=== PATIENT | male | born 1985 | race African-American/Black ===

== ENCOUNTER 2016-06-02 13:39 | Emergency (ER) | payer OTHER ==
[~2016-06-02] VITALS: Ht 170.2 cm; Wt 118.8 kg
[~2016-06-02 13:39] MED LIST: ALBUTEROL SULF8.5 GM INH; AZITHROMYCIN250 MG ORAL; CIPRO500 MG PO; CIPROFLOXACIN500 M2 ORAL; CLARITIN-D 241 EACH PO; FLUTICASONE PRO16 G1 NASAL; FUROSEMIDE20 M1 ORAL; GENTAMICIN SUL3.5 GM OP; HYDROCHLOROTHIA25 MG ORAL; IMODIUM2 MG ORAL; LISINOPRIL20 MG ORAL; METFORMIN HCL500 M1 ORAL; METRONIDAZOLE500 MG ORAL; NKM; NORMODYNE200 MG ORAL; NORVASC10 MG ORAL; ONDANSETRON ODT4 MG ORAL; RANITIDINE HCL150 MG ORAL; TENORMIN25 MG ORAL; ZOFRAN4 M1 ORAL
[2016-06-02] MEDS ORDERED: Lidocaine 1% MPF 10mg/ml 5ml INJ ONE (14:15)
[2016-06-02 14:42] VITALS: BP 186/104
[2016-06-02] MEDS ORDERED: BACTRIM DS TAB1 EAC1 ORAL (14:42)
[2016-06-02] MEDS ORDERED: CEPHALEXIN500 MG ORAL (14:42)
[2016-06-02] MEDS ORDERED: IBUPROFEN600 MG ORAL (14:42)
[2016-06-02] MEDS ORDERED: Bacitracin Oint UD TOPIC ONE (14:45)
[2016-06-02 14:55] VITALS: BP 186/104
--- NOTE | 2016-06-02 22:21 | Emergency Room Report ---
History of Present Illness General Chief Complaint: Skin Rash/Abscess Source: Patient Present Illness HPI The pt is a 31 yo M presenting for a possible abscess of the L groin. The pt first noticed pain and a mass two days prior which has been worsening. The pt also has noticed discharge described as yellow this morning from the mass. Pain is described as a 10/10 dull ache and does not radiate from the area. Pain is worse with touch. The pt denies any past injuries to this areas and is unsure of why this may have started. The pt denies any other symptoms including N, V, F , chills, numbness/tingling, dysuria, hematuria, penile DC, abd pain Allergies: Coded Allergies: No Known Allergies (Verified , 08/04/09) Patient History Past Medical History: see triage record Pertinent Family History: none Reviewed Nursing Documentation: PMH: Agreed, PSxH: Agreed Nursing Documentation-PMH Past Medical History: No History, Except For Hx Cardiac Problems: Yes Hx Hypertension: Yes Hx Pacemaker: No Hx Asthma: No Hx COPD: No Hx Diabetes: Yes Hx Cancer: No Hx Gastrointestinal Problems: No Hx Dialysis: No Hx Neurological Problems: Yes Hx Cerebrovascular Accident: No Hx Seizures: No Review of Systems All Other Systems: negative except mentioned in HPI Physical Exam Vital Signs Date Time Temp Pulse Resp B/P Pulse Ox O2 Delivery O2 Flow Rate FiO2 06/02/16 13:51 98.4 92 16 186/104 99 Sp02 EP Interpretation: reviewed, normal General Appearance: no apparent distress, alert, GCS 15, non-toxic Head: normocephalic, atraumatic Eyes: bilateral eye PERRL, bilateral eye normal inspection Gastrointestinal: normal bowel sounds, non tender, soft, non-distended, no guarding, no rebound Rectal: deferred Genitourinary: normal inspection, no CVA tenderness, penis normal, scrotum normal Musculoskeletal: back normal, gait/station normal, normal range of motion, non- tender Neurologic: alert, oriented x3, responsive, motor strength/tone normal, sensory intact, speech normal Psychiatric: judgement/insight normal, memory normal, mood/affect normal, no suicidal/homicidal ideation Skin: normal turgor, other - There is a 3cm fluctuant tender mass of the L inguinal region with a central opening and some discharge. Lymphatic: no adenopathy Procedures Incision and Drainage Incision and Drainage : Consent: Verbal Site: L inguinal region Blade Size: 11 I & D Procedure: betadine prep, sterile drapes applied, sterile dressing applied Wound Location: lower extremity Wound's Depth, Shape: superficial Wound Length (cm): 3 Wound Explored: contaminated Irrigated w/ Saline (ccs): 100 Anesthesia: 1% Lidocaine Volume Anesthetic (ccs): 3 Splint Applied?: No Sling Applied?: No Patient Tolerated: Well Complications: None Medical Decision Making PA Attestation Dr. Bose is my supervising physician. Patient management was discussed with my supervising physician Diagnostic Impression: Primary Impression: Abscess ER Course The pt is a 31 yo M presenting for a possible abscess of the L groin. Differential diagnoses considered but not limited to: abscess, cellulitis, insect bite PE: afebrile. NAD Abd is soft and non tender. No CVA tenderness Penis and scrotum appears normal. No DC. Non tender. No erythema/edema There is a 3cm fluctuant tender mass of the L inguinal region with a central opening and some discharge. Betadine prep was used to clean the skin and surrounding area. One percent lidocaine without epinephrine was used to anesthetize the are of planned incision. A #11 blade was used to make an incision in the central area of fluctuance approximately 1/3 the size of the diameter of the abcess. Once the incision was made, purulent material was expressed with blood. Blunt dissection was then used to release loculations and expressed more purulent material. Once only blood appeared to be expressed from the incision, normal saline was used to irrigate the inside of the abscess. The wound was then cleaned and sterile dressing with bacitracin applied. The pt is DC'ed home with a prescription for keflex and bactrim. ER precautions given. Last Vital Signs Date Time Temp Pulse Resp B/P Pulse Ox O2 Delivery O2 Flow Rate FiO2 06/02/16 14:55 98.4 16 186/104 99 06/02/16 13:51 92 Status: improved Disposition: HOME, SELF-CARE Condition: Improved Scripts Trimethoprim/Sulfamethoxazole 160/800* (BACTRIM DS TABLET*) 1 Each Tablet 1 TAB ORAL TWICE A DAY, #14 TAB Prov: TERZIANBILL P.A. 06/02/16 Cephalexin* (KEFLEX*) 500 Mg Capsule 500 MG ORAL EVERY 12 HOURS, #14 CAP 0 Refills Prov: BILL LIM 06/02/16 Ibuprofen* (MOTRIN*) 600 Mg Tablet 600 MG ORAL Q8H Y for For Pain, #30 TAB 0 Refills Prov: BILL LIM 06/02/16 Referrals: NON PHYSICIAN (PCP) Patient Instructions: Abscess Additional Instructions: I discussed my findings with the patient. All questions and concerns have been answered. Treatment and medication compliance have been addressed. I advised the patient that they need to follow up with PMD in 3-5 days. Return to ED if symptoms worsen, new symptoms arise, or if needed for any reason. Patient verbalized understanding of discharge instructions. BILL LIM Jun 02, 2016 22:21
== END 2016-06-02 14:58 | disposition home or self-care (01) ==
LOC: EMR 14:15
DX: L02.214 Cutaneous abscess of groin (principal); I10 Essential (primary) hypertension; E11.9 Type 2 diabetes mellitus without complications
CPT/HCPCS: 10060

== ENCOUNTER 2016-07-16 23:12 | Emergency (ER) | payer OTHER ==
[~2016-07-16] VITALS: Ht 170.2 cm; Wt 117.9 kg
[~2016-07-16 23:12] MED LIST changes: +BACTRIM DS TAB1 EAC1 ORAL; +CEPHALEXIN500 MG ORAL; +IBUPROFEN600 MG ORAL
--- NOTE | 2016-07-16 23:45 | Emergency Room Report ---
History of Present Illness General Chief Complaint: Sore Throat Source: Patient Present Illness HPI Patient presents with sore throat. 3 days worsening. Pain with swallowing = burning. No cough. Able to eat. Pain is 9/10. Motrin taken. No NVD. NO rashes. Has not been taking his blood pressure medicine. No chest pain, FRANCO, change in urine. 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 Nursing Documentation: PMH: Agreed, PSxH: Agreed Nursing Documentation-PMH Past Medical History: No History, Except For Hx Cardiac Problems: Yes Hx Hypertension: Yes Hx Pacemaker: No Hx Asthma: No Hx COPD: No Hx Diabetes: Yes - Type 2 Hx Cancer: No Hx Gastrointestinal Problems: No Hx Dialysis: No Hx Neurological Problems: Yes Hx Cerebrovascular Accident: No Hx Seizures: No Review of Systems All Other Systems: negative except mentioned in HPI Physical Exam Vital Signs Date Time Temp Pulse Resp B/P Pulse Ox O2 Delivery O2 Flow Rate FiO2 07/16/16 23:22 98.4 89 17 100 Room Air Sp02 EP Interpretation: reviewed, normal General Appearance: well appearing, no apparent distress Head: normocephalic, atraumatic Eyes: bilateral eye PERRL, bilateral eye normal inspection ENT: hearing grossly normal, normal voice, pharyngeal erythema, tonsillar exudate Neck: full range of motion, supple Respiratory: no respiratory distress, speaking full sentences Gastrointestinal: non tender, overweight Musculoskeletal: no calf tenderness Neurologic: alert, normal gait, grossly normal Psychiatric: mood/affect normal Skin: no rash Medical Decision Making Diagnostic Impression: Primary Impression: Exudative pharyngitis Additional Impression: HTN (hypertension) Qualified Codes: I10 - Essential (primary) hypertension ER Course Patient with exudative pharyngitis. Treated with decadron and antibiotics. Not toxic. 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 Also found with HTN. Given meds and told to resume taking them. Patient stable for outpatient observation and treatment. Last Vital Signs Date Time Temp Pulse Resp B/P Pulse Ox O2 Delivery O2 Flow Rate FiO2 07/17/16 00:50 98.4 101 17 200/110 100 Room Air Patient left before another determination could be taken. Status: improved Disposition: HOME, SELF-CARE Condition: Stable Scripts Tramadol Hcl* (ULTRAM*) 50 Mg Tablet 50 MG ORAL Q6H Y for For Pain, #10 TAB 0 Refills Prov: Kamran Bose M.D. 07/16/16 Amoxicillin* (AMOXIL*) 500 Mg Capsule 500 MG ORAL THREE TIMES A DAY, #21 CAP Prov: Kamran Bose M.D. 07/16/16 Kamran Bose M.D. Jul 16, 2016 23:45
[2016-07-16] MEDS ORDERED: TRAMADOL HCL50 MG ORAL (23:48)
[2016-07-16] MEDS ORDERED: AMOXICILLIN500 MG ORAL (23:48)
[2016-07-16 23:50] VITALS: BP 200/110
[2016-07-17] MEDS ORDERED: Atenolol 25mg tab ORAL ONE
[2016-07-17] MEDS ORDERED: Labetalol 200mg tab ORAL STA (00:06)
[2016-07-17] MEDS ORDERED: Lisinopril 10mg tab ORAL ONE (00:15)
[2016-07-17 00:50] VITALS: BP 200/110
== END 2016-07-17 00:50 | disposition home or self-care (01) ==
LOC: EMR 23:44
DX: J02.9 Acute pharyngitis, unspecified (principal); I10 Essential (primary) hypertension; E11.9 Type 2 diabetes mellitus without complications; F17.290 Nicotine dependence, other tobacco product, uncomplicated; F12.10 Cannabis abuse, uncomplicated
CPT/HCPCS: 99284; J8540

== ENCOUNTER 2017-01-24 12:12 | Emergency (ER) | payer MEDICAID, OTHER ==
[~2017-01-24] VITALS: Ht 175.3 cm; Wt 113.4 kg
[~2017-01-24 12:12] MED LIST changes: +AMOXICILLIN500 MG ORAL; +TRAMADOL HCL50 MG ORAL
[2017-01-24 12:21] VITALS: BP 176/130
--- NOTE | 2017-01-24 13:47 | Diagnostic Imaging Report ---
Indication: Dizziness Technique: Continuous helical CT scanning of the head was performed without intravenous contrast material. Axial and coronal 5 mm sections were generated. Radiation dose was minimized using automated exposure control Dose: Total Dose Length Product - DLP [address] Dose Index - CTDIvol(s) 70.38 mGy. Comparison: 12/23/2013 Findings: The ventricular system is normal in size and configuration. There is no shift of midline structures. No abnormal extra-axial fluid collections are noted. There is no evidence of intracerebral bleeding. No other abnormal high or low density areas are noted within the brain. Normal hoyt-white differentiation. Visualized orbits and sinuses are unremarkable. Under pneumatized mastoids bilaterally. Intact calvarium. Possible small colloid cyst at the roof of the third ventricle. Findings are unchanged from previous Impression: Essentially normal CT scan of the head without contrast material. Possible small third ventricular roof colloid cyst The CT scanner at [facility] is accredited by the [employer] and the scans are performed using protocols designed to limit radiation exposure to as low as reasonably achievable to attain images of sufficient resolution adequate for diagnostic evaluation.
[2017-01-24 13:48] VITALS: BP 181/119
[2017-01-24 13:50] LABS: BASOPHILS % (AUTO) 1.4 % (0.0-2.0); EOSINOPHILS % (AUTO) 1.3 % (0.0-3.0); LYMPHOCYTES % (AUTO) 25.7 % (20.0-45.0); MEAN CORPUSCULAR HEMOGLOBIN 29.2 PG (27.0-31.0); MEAN CORPUSCULAR HGB CONC 34.5 G/DL (32.0-36.0); MEAN CORPUSCULAR VOLUME 85 FL (80-99); MEAN PLATELET VOLUME 7.9 FL (6.5-10.1); MONOCYTES % (AUTO) 9.3 % (1.0-10.0); NEUTROPHILS % (AUTO) 62.3 % (45.0-75.0); PLATELET COUNT 309 K/UL (150-450); RED BLOOD COUNT 5.47 M/UL (4.70-6.10); RED CELL DISTRIBUTION WIDTH 11.1 % (11.6-14.8); WHITE BLOOD COUNT 5.6 K/UL (4.8-10.8)
--- NOTE | 2017-01-24 13:51 | Diagnostic Imaging Report ---
Indication: Shortness of breath Technique: One view of the chest Comparison: 11/12/2015 Findings: The heart is mildly enlarged. The lungs and pleural spaces are clear. There is no significant change Impression: Cardiomegaly No acute process
--- NOTE | 2017-01-24 13:52 | Emergency Room Report ---
History of Present Illness General Chief Complaint: Eye Problems Source: Patient (RIAJ HENSLEY M.D.) Present Illness HPI 31-year-old male presents ED complaining of blurred vision x2 days. Denies any headache. Denies any nausea or vomiting. In triage blood pressure is high. Patient states has history of hypertension and diabetes but read out of his medication about one week ago. Denies any chest pain or shortness of breath. Denies any drug use. No other aggravating relieving factors. Denies any other associated symptoms (IRAJ HENSLEY M.D.) Allergies: Coded Allergies: No Known Allergies (Verified , 08/04/09) Patient History Past Medical History: none, DM, HTN Past Surgical History: none Pertinent Family History: none Social History: Denies: smoking, alcohol use, drug use Immunizations: UTD Reviewed Nursing Documentation: PMH: Agreed, PSxH: Agreed (IRAJ HENSLEY M.D.) Nursing Documentation-PMH Hx Cardiac Problems: Yes Hx Hypertension: Yes Hx Pacemaker: No Hx Asthma: No Hx COPD: No Hx Diabetes: Yes - Type 2 Hx Cancer: No Hx Gastrointestinal Problems: No Hx Dialysis: No Hx Neurological Problems: Yes Hx Cerebrovascular Accident: No Hx Seizures: No (IRAJ HENSLEY M.D.) Review of Systems All Other Systems: negative except mentioned in HPI (IRAJ HENSLEY M.D.) Physical Exam Vital Signs Date Time Temp Pulse Resp B/P (MAP) Pulse Ox O2 Delivery O2 Flow Rate FiO2 01/24/17 12:21 98.4 89 20 176/130 99 Room Air Sp02 EP Interpretation: reviewed, normal General Appearance: no apparent distress, alert, GCS 15, non-toxic, obese Head: normocephalic, atraumatic Eyes: bilateral eye normal inspection, bilateral eye PERRL, bilateral eye EOMI ENT: hearing grossly normal, normal pharynx, no angioedema, normal voice Neck: full range of motion, supple, no meningismus, supple/symm/no masses Respiratory: chest non-tender, lungs clear, normal breath sounds, speaking full sentences Cardiovascular #1: regular rate, rhythm, no edema Cardiovascular #2: 2+ carotid (R), 2+ carotid (L), 2+ radial (R), 2+ radial (L) , 2+ dorsalis pedis (R), 2+ dorsalis pedis (L) Gastrointestinal: normal bowel sounds, non tender, soft, non-distended, no guarding, no rebound Rectal: deferred Genitourinary: normal inspection, no CVA tenderness Musculoskeletal: back normal, gait/station normal, normal range of motion, non- tender Neurologic: alert, oriented x3, responsive, motor strength/tone normal, sensory intact, speech normal Psychiatric: judgement/insight normal, memory normal, mood/affect normal, no suicidal/homicidal ideation Reflexes: 3+ bicep (R), 3+ bicep (L), 3+ tricep (R), 3+ tricep (L), 3+ knee (R) , 3+ knee (L) Skin: normal color, no rash, warm/dry, well hydrated Lymphatic: no adenopathy (IRAJ HENSLEY M.D.) Medical Decision Making Diagnostic Impression: Primary Impression: Hypertensive emergency Additional Impression: Noncompliance with medication regimen ER Course Received signout 31-year-old male with hypertension Uncontrolled With blurry vision for the last 2 days Patient has got him clonidine 0.1 mg as well as hydralazine 10 mg IV x2, have her blood pressure still not coming down, systolic is 170/110 Patient still symptomatic Patient will be transferred to outside hospital to to insurance purposes He is stable for transfer Spoke with Dr. Escobar who has accepted patient for admission Another 0.2 mg of clonidine will be given Patient is leaving AGAINST MEDICAL ADVICE Patient received antihypertensives, his last blood pressure improved to 170/80 Patient's symptoms are improved He states that he does not want to be transferred or admitted at this time, states that the hospital too far for him to drive later Patient stating that his blood pressure as high as he has run out of meds for a couple states that he is unable to get appointment with his primary care doctor I told him to either call his doctor for refill of medications or he can call back [facility] and I will refill for a few days . Strict return precautions given to patient such as severe or worsening headache, blurry vision, nausea vomiting, chest pain, shortness of breath He verbalized understanding and agrees Patient is clinically sober, is free from from distracting injury, and has intact judgement and capacity to decide to leave against medical advice. I explained to patient the risks of leaving AMA and patient informed that if they leave, they could get worse, ould become become critically ill, possibly become disabled or . Patient verbalized back to me understanding of these risks but still wants to leave. (Guicho Cordova M.D.) EKG Diagnostic Results Rate: normal Rhythm: NSR ST Segments: no acute changes ASA given to the pt in ED: No (IRAJ HENSLEY M.D.) Rhythm Strip Diag. Results EP Interpretation: yes Rhythm: NSR, no PVC's, no ectopy (IRAJ HENSLEY M.D.) Chest X-Ray Diagnostic Results Chest X-Ray Diagnostic Results : Chest X-Ray Ordered: Yes # of Views/Limited/Complete: 1 View Indication: Shortness of Breath EP Interpretation: Yes Interpretation: no consolidation, no effusion, no pneumothorax, other - cardiomegaly Impression: Other - cardiomegaly Electronically Signed by: Electronically signed by Iraj Hensley MD (IRAJ HENSLEY M.D.) CT/MRI/US Diagnostic Results CT/MRI/US Diagnostic Results : Imaging Test Ordered: CT head Impression no acute proces (IRAJ HENSLEY M.D.) Last Vital Signs Date Time Temp Pulse Resp B/P (MAP) Pulse Ox O2 Delivery O2 Flow Rate FiO2 01/24/17 13:48 98.4 81 18 181/119 100 Room Air Status: improved (IRAJ HENSLEY M.D.) Disposition: ADMITTED INPATIENT Condition: Serious Referrals: [facility],REFERRING (PCP) IRAJ HENSLEY M.D. Jan 24, 2017 13:52 Guicho Cordova M.D. Jan 24, 2017 15:03
[2017-01-24 14:14] LABS: ALANINE AMINOTRANSFERASE 44 U/L (12-78); ALBUMIN/GLOBULIN RATIO 1.1 (1.0-2.7); ANION GAP 7 mmol/L (5-15); ASPARTATE AMINO TRANSFERASE 22 U/L (15-37); CALCIUM 9.5 MG/DL (8.5-10.1); CARBON DIOXIDE 30 MMOL/L (21-32); CHLORIDE 101 MMOL/L (98-107); CKMB 4.6 NG/ML (0.0-3.6); CREATININE 1.2 MG/DL (0.55-1.30); GLOMERULAR FILTRATION RATE > 60 mL/min (>60); POTASSIUM 4.1 MMOL/L (3.5-5.1); SODIUM 138 MMOL/L (136-145); TOTAL PROTEIN 7.5 G/DL (6.4-8.2)
[2017-01-24] MEDS ORDERED: cloNIDine 0.2mg Tab ORAL ONE (15:00)
[2017-01-24 15:29] VITALS: BP 176/92
[2017-01-24] MEDS ORDERED: METFORMIN HCL500 M1 ORAL (17:08)
[2017-01-24] MEDS ORDERED: HYDROCHLOROTHIA25 MG ORAL (17:08)
[2017-01-24 17:15] VITALS: BP 173/90
--- NOTE | 2017-01-24 23:00 | Consultation ---
DATE OF CONSULTATION: 01/24/2017 INTERNAL MEDICINE CONSULTATION CONSULTING PHYSICIAN: Wilmer Gandhi M.D. HISTORY OF PRESENT ILLNESS: This is a 31-year-old male who came to the hospital with blurred vision. He denied headaches, nausea, or vomiting. He was noted to be hypertensive. The patient reports being a known hypertensive and diabetic, but states that he is taking his medications. PAST MEDICAL HISTORY: Hypertension and diabetes mellitus. PAST SURGICAL HISTORY: None. SOCIAL HISTORY: No history of alcohol or tobacco usage. REVIEW OF SYSTEMS: The patient denies any headaches, hematemesis, melena, or hematochezia. PHYSICAL EXAMINATION: GENERAL: Reveals a young male. VITAL SIGNS: Blood pressure 170/100, respirations are 18, and heart rate 84. HEENT: Unremarkable. CHEST: Clear. ABDOMEN: Soft. LABORATORY AND DIAGNOSTIC DATA: EKG, normal sinus rhythm. Lab testing, noncontributory. IMPRESSION: Hypertensive urgency. DISCUSSION: The patient is hypertensive. He is noncompliant with medications. At this point, he is stable for transfer to [facility]. I spoke with Dr. Urena. He will admit the patient. Discussed with on-call outsole caser. The patient is stable for transfer. Wilmer Gandhi M.D. DR: KATELYN JOB#: [id number] CC:
--- NOTE | 2017-01-25 16:40 | Cardiology Report ---
APPROVED REPORT EKG Measurement Heart [id number] Normal sinus rhythm Nonspecific T wave abnormality Prolonged QT Abnormal ECG
== END 2017-01-24 17:17 | disposition left against medical advice (07) ==
LOC: EMR 12:34
DX: H53.8 Other visual disturbances (principal); I10 Essential (primary) hypertension; E11.9 Type 2 diabetes mellitus without complications; I16.0 Hypertensive urgency; Z91.14 Patient's other noncompliance with medication regimen; Z86.79 Personal history of other diseases of the circulatory system; Z86.69 Personal history of other diseases of the nervous system and sense organs
CPT/HCPCS: 36415; 70450; 71010; 80053; 82009; 82550; 82553; 82962; 83880; 84484; 85025; 93005; 96361; 96374; 96376; 99284; J0360

== ENCOUNTER 2017-07-14 18:37 | Emergency (ER) | payer MEDICAID ==
[~2017-07-14] VITALS: Ht 177.8 cm; Wt 124.3 kg
[2017-07-14 18:54] VITALS: BP 198/126
[2017-07-14] MEDS ORDERED: METFORMIN HCL500 M1 ORAL (18:55)
[2017-07-14] MEDS ORDERED: LABETALOL HCL200 MG ORAL (18:55)
[2017-07-14] MEDS ORDERED: LISINOPRIL40 MG ORAL (18:55)
--- NOTE | 2017-07-14 19:08 | Emergency Room Report ---
History of Present Illness General Chief Complaint: Laceration Source: Patient Present Illness HPI Patient is a 32-year-old male brought in by self after increased pain to his left thumb. The patient reports having the cut his hand with a knife. The patient is left-hand dominant. Patient denies any pulsatile bleeding. He stated pain was noted to be left-sided. He denies any fever. 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 Allergies: Coded Allergies: No Known Allergies (Verified , 08/04/09) Patient History Past Medical History: see triage record Reviewed Nursing Documentation: PMH: Agreed; PSxH: Agreed Nursing Documentation-PMH Hx Cardiac Problems: Yes Hx Hypertension: Yes Hx Pacemaker: No Hx Asthma: No Hx COPD: No Hx Diabetes: Yes - DM2 Hx Cancer: No Hx Gastrointestinal Problems: No Hx Dialysis: No Hx Neurological Problems: Yes Hx Cerebrovascular Accident: No Hx Seizures: No Review of Systems All Other Systems: negative except mentioned in HPI Physical Exam Vital Signs Date Time Temp Pulse Resp B/P (MAP) Pulse Ox O2 Delivery O2 Flow Rate FiO2 07/14/17 18:40 98.5 101 19 198/126 96 Room Air 98.4 General Appearance: well appearing, no apparent distress, alert, GCS 15 Head: normocephalic, atraumatic ENT: hearing grossly normal, normal voice Neck: full range of motion, supple Respiratory: no respiratory distress, speaking full sentences Cardiovascular #1: normal inspection Gastrointestinal: normal inspection Musculoskeletal: no calf tenderness Neurologic: normal inspection, alert, oriented x3, responsive, normal gait Psychiatric: mood/affect normal Skin: no rash, laceration - 1cm Procedures Laceration/Wound Repair Laceration/Wound Repair : Consent: Verbal Wound Location: upper extremity Wound's Depth, Shape: superficial Wound Length (cm): 1 Wound Explored: clean Wound Debrided: minimal Wound Repaired With: Dermabond Patient Tolerated: Well Complications: None Medical Decision Making Diagnostic Impression: Primary Impression: Finger laceration ER Course Patient presented for laceration. Differential diagnoses included foreign body , nerve injury, arterial injury among others. Patient has a benign exam and does not appear to require any further imaging or laboratory testing at this time. The patient blood pressure was noted to be elevated and improved spontaneously. The patient was advised to follow-up with primary care physician for recheck in the next 2 days. The patient was advised wound care. He was advised not to contact his left thumb. Last Vital Signs Date Time Temp Pulse Resp B/P (MAP) Pulse Ox O2 Delivery O2 Flow Rate FiO2 07/14/17 18:54 98.4 99 19 198/126 96 Room Air 98.4 Status: improved Disposition: HOME, SELF-CARE Condition: Stable Patient Instructions: Tissue Adhesive Wound Care Charles Wilkinson Jul 14, 2017 19:08
[2017-07-14] MEDS ORDERED: Tetanus/Diptheria/Pertussis Vaccine 0.5ml Syr IM ONE (19:15)
[2017-07-14 19:40] VITALS: BP 176/110
[2017-07-14 19:47] VITALS: BP 176/110
== END 2017-07-14 19:46 | disposition home or self-care (01) ==
LOC: EMR 19:15
DX: S61.012A Laceration without foreign body of left thumb without damage to nail, initial encounter (principal); E11.9 Type 2 diabetes mellitus without complications; I10 Essential (primary) hypertension; W26.0XXA Contact with knife, initial encounter; Y93.9 Activity, unspecified; Y92.9 Unspecified place or not applicable; Z23 Encounter for immunization
CPT/HCPCS: 12001; 90471; 90715; 99284; Z7502

== ENCOUNTER 2018-04-08 09:21 | Emergency (ER) | payer MEDICAID ==
[~2018-04-08] VITALS: Ht 170.2 cm; Wt 113.4 kg
[~2018-04-08 09:21] MED LIST changes: +LABETALOL HCL200 MG ORAL; +LISINOPRIL40 MG ORAL
--- NOTE | 2018-04-08 09:34 | NUR ---
ED Nurse Note: Pt came into the ER w/ complaints of n,v,d since yesterdat after eating [employer]. Pt is complaiing of abdominal pain in all quadrants 8/10 non radiating. Hx of DM and HTN. Takes atenelol and hctz for HTN. A + O x4. Ambulatory. As per pt, pt has not taken BP meds today.
[2018-04-08 09:36] VITALS: BP 194/104
[2018-04-08] MEDS ORDERED: Ketorolac 30mg Inj IV ONE (09:45)
[2018-04-08] MEDS ORDERED: Mylanta II UD 30ml ORAL ONE (09:45)
[2018-04-08] MEDS ORDERED: Dicyclomine HCl 10mg/5ml oral soln ORAL ONE (09:45)
[2018-04-08] MEDS ORDERED: Lidocaine 2% Visc 15ml soln ORAL ONE (09:45)
[2018-04-08 10:01] LABS: BASOPHILS % (AUTO) 1.7 % (0.0-2.0); EOSINOPHILS % (AUTO) 0.4 % (0.0-3.0); HEMATOCRIT 44.3 % (42.0-52.0); HEMOGLOBIN 15.6 G/DL (14.2-18.0); LYMPHOCYTES % (AUTO) 4.1 % (20.0-45.0); MEAN CORPUSCULAR VOLUME 83 FL (80-99); MONOCYTES % (AUTO) 14.1 % (1.0-10.0); NEUTROPHILS % (AUTO) 79.7 % (45.0-75.0); PLATELET COUNT 245 K/UL (150-450); RED BLOOD COUNT 5.33 M/UL (4.70-6.10); RED CELL DISTRIBUTION WIDTH 11.5 % (11.6-14.8); WHITE BLOOD COUNT 8.2 K/UL (4.8-10.8)
[2018-04-08 10:10] LABS: ANION GAP 10 mmol/L (5-15); BLOOD UREA NITROGEN 16 mg/dL (7-18); CALCIUM 8.5 MG/DL (8.5-10.1); CARBON DIOXIDE 25 MMOL/L (21-32); CHLORIDE 99 MMOL/L (98-107); CREATININE 1.3 MG/DL (0.55-1.30); POTASSIUM 3.8 MMOL/L (3.5-5.1); SODIUM 134 MMOL/L (136-145)
[2018-04-08 10:15] LABS: ALANINE AMINOTRANSFERASE 41 U/L (12-78); ALBUMIN 3.6 G/DL (3.4-5.0); ALKALINE PHOSPHATASE 62 U/L (46-116); ASPARTATE AMINO TRANSFERASE 18 U/L (15-37)
[2018-04-08] MEDS ORDERED: ONDANSETRON ODT4 MG BC (10:40)
[2018-04-08] MEDS ORDERED: RANITIDINE HCL150 MG ORAL (10:40)
[2018-04-08] MEDS ORDERED: DICYCLOMINE HCL10 MG PO (10:40)
[2018-04-08] MEDS ORDERED: Atenolol 25mg tab ORAL ONE (10:45)
[2018-04-08 10:50] VITALS: BP 201/118
--- NOTE | 2018-04-08 10:51 | NUR ---
ED Nurse Note: Discharge instructions given to pt. Answered all questions. Verbalized understanding. No acute distress noted. ID band and IV site removed. Left with all belongings. Left ER w/ steady gait.
--- NOTE | 2018-04-08 11:16 | Emergency Room Report ---
History of Present Illness General Chief Complaint: Nausea, Vomiting, and Diarrhea Source: Patient Present Illness HPI 32-year-old male presents ED for evaluation. Complaining of abdominal pain with vomiting and diarrhea. Started last night after eating fast food. Cramping pain, 8 out of 10, nonradiating. Notes multiple episodes of vomiting and diarrhea. Denies sick contacts or recent travel. Denies recent antibiotic use. No other aggravating relieving factors. Denies any other associated symptoms Allergies: Coded Allergies: No Known Allergies (Verified , 08/04/09) Patient History Past Medical History: DM, HTN Past Surgical History: none Pertinent Family History: none Social History: Denies: smoking, alcohol use, drug use Immunizations: UTD Reviewed Nursing Documentation: PMH: Agreed; PSxH: Agreed Nursing Documentation-PMH Hx Cardiac Problems: Yes Hx Hypertension: Yes Hx Pacemaker: No Hx Asthma: No Hx COPD: No Hx Diabetes: Yes - DM2 Hx Cancer: No Hx Gastrointestinal Problems: No Hx Dialysis: No Hx Neurological Problems: Yes Hx Cerebrovascular Accident: No Hx Seizures: No Review of Systems All Other Systems: negative except mentioned in HPI Physical Exam Vital Signs Date Time Temp Pulse Resp B/P (MAP) Pulse Ox O2 Delivery O2 Flow Rate FiO2 04/08/18 09:25 98.4 86 19 186/103 98 04/08/18 09:36 Room Air Sp02 EP Interpretation: reviewed, normal General Appearance: no apparent distress, alert, GCS 15, non-toxic, obese Head: normocephalic, atraumatic Eyes: bilateral eye normal inspection, bilateral eye PERRL ENT: hearing grossly normal, normal pharynx, no angioedema, normal voice Neck: full range of motion, supple/symm/no masses Respiratory: chest non-tender, lungs clear, normal breath sounds, speaking full sentences Cardiovascular #1: regular rate, rhythm, no edema Cardiovascular #2: 2+ carotid (R), 2+ carotid (L), 2+ radial (R), 2+ radial (L) , 2+ dorsalis pedis (R), 2+ dorsalis pedis (L) Gastrointestinal: normal bowel sounds, soft, non-distended, no guarding, no rebound, tenderness Rectal: deferred Genitourinary: normal inspection, no CVA tenderness Musculoskeletal: back normal, gait/station normal, normal range of motion, non- tender Neurologic: alert, oriented x3, responsive, motor strength/tone normal, sensory intact, speech normal Psychiatric: judgement/insight normal, memory normal, mood/affect normal, no suicidal/homicidal ideation Reflexes: 3+ bicep (R), 3+ bicep (L), 3+ tricep (R), 3+ tricep (L), 3+ knee (R) , 3+ knee (L) Skin: normal color, no rash, warm/dry, well hydrated Lymphatic: no adenopathy Medical Decision Making Diagnostic Impression: Primary Impression: Gastroenteritis Additional Impression: HTN (hypertension) Qualified Codes: I10 - Essential (primary) hypertension ER Course Hospital Course 32-year-old M presents to ED with cramping abdominal pain with vomiting, diarrhea differential diagnosis: gastritis, SBO, cholecystits, gastroenteritis Clinical course Patient placed on stretcher. On surveillance monitor. After initial history and physical I ordered labs, IV fluids, Zofran, GI cocktail, pepcid and toradol Labs - no leukocytosis, electrolytes ok, LFTs normal Upon reassessment, patient states pain has improved. findings consistent with gastroenteritis Discussed findings with patient. Safe for discharge close outpatient follow- up. Patient states he has a PMD. Blood pressure elevated here. Patient denies headache dizziness. Denies chest pain or shortness of breath. Missed his morning medications. Given atenolol and hydrochlorothiazide here. I feel this is a highly complex case requiring extensive working including EKG/ Rhythm strip, Xray/CT/US, Blood/urine lab work, repeat exams while in ED, and administration of strong opiates/narcotics for pain control, admission to hospital or close patient follow up. Diagnosis - gastroenteritis, hypertension Stable and discharged to home with prescriptions for Zantac, zofran, bentyl. Followup with PMD. Return to ED if symptoms recur or worsen Labs Test 04/08/18 09:50 White Blood Count 8.2 K/UL (4.8-10.8) Red Blood Count 5.33 M/UL (4.70-6.10) Hemoglobin 15.6 G/DL (14.2-18.0) Hematocrit 44.3 % (42.0-52.0) Mean Corpuscular Volume 83 FL (80-99) Mean Corpuscular Hemoglobin 29.3 PG (27.0-31.0) Mean Corpuscular Hemoglobin Concent 35.2 G/DL (32.0-36.0) Red Cell Distribution Width 11.5 % (11.6-14.8) Platelet Count 245 K/UL (150-450) Mean Platelet Volume 6.7 FL (6.5-10.1) Neutrophils (%) (Auto) 79.7 % (45.0-75.0) Lymphocytes (%) (Auto) 4.1 % (20.0-45.0) Monocytes (%) (Auto) 14.1 % (1.0-10.0) Eosinophils (%) (Auto) 0.4 % (0.0-3.0) Basophils (%) (Auto) 1.7 % (0.0-2.0) Sodium Level 134 MMOL/L (136-145) Potassium Level 3.8 MMOL/L (3.5-5.1) Chloride Level 99 MMOL/L (98-107) Carbon Dioxide Level 25 MMOL/L (21-32) Anion Gap 10 mmol/L (5-15) Blood Urea Nitrogen 16 mg/dL (7-18) Creatinine 1.3 MG/DL (0.55-1.30) Estimat Glomerular Filtration Rate > 60 mL/min (>60) Glucose Level 238 MG/DL (74-106) Calcium Level 8.5 MG/DL (8.5-10.1) Total Bilirubin 1.0 MG/DL (0.2-1.0) Aspartate Amino Transf (AST/SGOT) 18 U/L (15-37) Alanine Aminotransferase (ALT/SGPT) 41 U/L (12-78) Alkaline Phosphatase 62 U/L (46-116) Total Protein 7.2 G/DL (6.4-8.2) Albumin 3.6 G/DL (3.4-5.0) Globulin 3.6 g/dL Albumin/Globulin Ratio 1.0 (1.0-2.7) Lipase 93 U/L (73-393) Last Vital Signs Date Time Temp Pulse Resp B/P (MAP) Pulse Ox O2 Delivery O2 Flow Rate FiO2 04/08/18 10:50 98.1 87 21 201/118 100 Room Air Status: improved Disposition: HOME, SELF-CARE Condition: Stable Scripts Dicyclomine Hcl* (DICYCLOMINE HCL*) 10 Mg Capsule 10 MG PO QID for 5 Days, CAP Prov: Iraj Hensley MD 04/08/18 Ranitidine Hcl* (ZANTAC*) 150 Mg Tablet 150 MG ORAL TWICE A DAY, #30 TAB Prov: Iraj Hensley MD 04/08/18 Ondansetron Odt* (ZOFRAN ODT*) 4 Mg Tab.rapdis 4 MG BC EVERY 6 HOURS PRN for Nausea & Vomiting, #20 TAB 0 Refills Prov: Iraj Hensley MD 04/08/18 Referrals: [facility],REFERRING (PCP) Patient Instructions: Viral Gastroenteritis, Adult, [id number] Iraj Hensley MD Apr 08, 2018 11:16
== END 2018-04-08 10:52 | disposition home or self-care (01) ==
LOC: EMR 10:03
DX: K52.9 Noninfective gastroenteritis and colitis, unspecified (principal); I10 Essential (primary) hypertension; E11.9 Type 2 diabetes mellitus without complications; E66.9 Obesity, unspecified; Z68.39 Body mass index [BMI] 39.0-39.9, adult
CPT/HCPCS: 36415; 80053; 83690; 85025; 96361; 96374; 96375; 99284; J1885; J2405; S0028

== ENCOUNTER 2019-10-18 12:46 | Emergency (ER) | payer MEDICAID, OTHER ==
[~2019-10-18 12:46] MED LIST changes: +DICYCLOMINE HCL10 MG PO; +ONDANSETRON ODT4 MG BC
[2019-10-18] MEDS ORDERED: Lidocaine 2% Visc 15ml soln ORAL ONE (13:15)
[2019-10-18] MEDS ORDERED: Mylanta II UD 30ml ORAL ONE (13:15)
[2019-10-18] MEDS ORDERED: Dicyclomine HCl 10mg/5ml oral soln ORAL ONE (13:15)
[2019-10-18] MEDS ORDERED: OMEPRAZOLE10 M1 ORAL (13:46)
[2019-10-18] MEDS ORDERED: FAMOTIDINE20 MG ORAL (13:46)
[2019-10-18] MEDS ORDERED: HYDROCHLOROTHIA25 MG ORAL (13:59)
[2019-10-18] MEDS ORDERED: LABETALOL HCL100 MG ORAL (13:59)
[2019-10-18] MEDS ORDERED: METFORMIN HCL500 M1 ORAL (13:59)
[2019-10-18] MEDS ORDERED: hydroCHLOROthiazide 25mg cap ORAL ONE (14:00)
== END 2019-10-18 14:10 | disposition home or self-care (01) ==
DX: R10.13 Epigastric pain (principal); Z91.14 Patient's other noncompliance with medication regimen; E11.65 Type 2 diabetes mellitus with hyperglycemia; I50.9 Heart failure, unspecified; I51.7 Cardiomegaly; I10 Essential (primary) hypertension
CPT/HCPCS: 36415; 71045; 80053; 83690; 83880; 84484; 85025; 93005; 96374; 99284; S0028

== ENCOUNTER 2019-11-20 14:20 | Emergency (ER) | payer OTHER ==
[~2019-11-20] VITALS: Ht 172.7 cm; Wt 118.8 kg
[~2019-11-20 14:20] MED LIST changes: +FAMOTIDINE20 MG ORAL; +LABETALOL HCL100 MG ORAL; +OMEPRAZOLE10 M1 ORAL
[2019-11-20 14:50] VITALS: BP 190/129
--- NOTE | 2019-11-20 14:59 | Emergency Room Report ---
History of Present Illness General Chief Complaint: Edema Source: Patient Present Illness HPI Disclaimer: Please note that this report is being documented using [employer] technology. This can lead to erroneous entry secondary to incorrect interpretation by the dictating instrument. HPI: 34-year-old male presents for evaluation of lower extremity swelling. Symptoms present for the past few weeks. Does not recall a specific injury. He states he woke up a few weeks ago with swollen legs bilaterally. 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 He has a history of CHF and compliant with hydrochlorothiazide. Denies prior history of DVT, prolonged immobilization, recent travel, history of cancer, history of coagulopathy or other risk factors for DVT. Has been ambulatory and denies weakness. Denies overlying skin changes or breakdown. 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 EOMI. Cardiovascular: RRR. S1 and S2 normal. No murmur appreciated Resp: Normal work of breathing. No cough, wheezing or crackles appreciated Skin: Intact. No abrasions, laceration or rash over the exposed skin MSK: Normal tone and bulk. Moving all extremities. No obvious deformity. Lower extremities are tense bilaterally, nonpitting edema though the right calf is moderately enlarged as compared to the left. Able to flex and extend at the ankles without pain or difficulty. 2+ PT pulses bilaterally. Neuro: Awake and alert. Mentating appropriately. Sensation is intact over the dermatomes of lower extremities bilaterally. Medical Decision Making Diagnostic Impression: Primary Impression: Fluid retention in legs ER Course Is a 34-year-old male brought in for evaluation of several weeks lower extremity swelling with maturity. Right leg is considerably larger than the left concerning for possible DVT though dependent edema, CHF, renal failure also on the differential. EKG does not show signs of ischemia. Labs returned largely within normal limits aside from elevated BN peptide consistent with patient's history of CHF. Creatinine slightly elevated though this is the patient's baseline. He reports no respiratory distress. Lower extremity Doppler studies showed edema but no evidence of DVT. I discussed with patient keeping his legs elevated and wearing compression socks while at work since he does do a lot of prolonged standing. I also discussed changing his medication regimen under doctor's supervision and to discuss these with his PMD. He is requesting a refill until he can see his doctor of his medications which I will provide. No other medical issues at this time. Patient stable for outpatient follow-up. Instructed to return with new or worsening symptoms. Laboratory Tests Test 11/20/19 15:11 Sodium Level 137 MMOL/L (136-145) Potassium Level 3.7 MMOL/L (3.5-5.1) Chloride Level 100 MMOL/L (98-107) Carbon Dioxide Level 27 MMOL/L (21-32) Anion Gap 10 mmol/L (5-15) Blood Urea Nitrogen 13 mg/dL (7-18) Creatinine 1.4 MG/DL (0.55-1.30) H Estimated Glomerular Filtration Rate > 60 mL/min (>60) Glucose Level 152 MG/DL (74-106) H Calcium Level 9.8 MG/DL (8.5-10.1) Troponin I 0.038 ng/mL (0.000-0.056) Pro-B-Type Natriuretic Peptide 1546 pg/mL (0-125) H EKG Diagnostic Results EKG Time: 14:51 Rate: normal Rhythm: NSR ST Segments: no acute changes Other Impression Sinus rhythm, normal axis, slightly prolonged QTC at 471 ms, no ST segment changes. Rhythm Strip Diag. Results Rhythm Strip Time: 14:51 EP Interpretation: yes Rate: 1451 Rhythm: NSR, no PVC's, no ectopy CT/MRI/US Diagnostic Results CT/MRI/US Diagnostic Results : Impression EXAM: ULTRASOUND Venous Duplex Scan [place]aine Leg CLINICAL HISTORY: Leg pain and edema. COMPARISON: None TECHNIQUE: Doppler examination include grayscale images obtained with and without compression, and color and spectral doppler analysis. FINDINGS: Doppler examination shows normal spontaneity, phasicity, compressibility in the bilateral lower extremities. There is no thrombus identified by grayscale. Normal color and spectral flow is identified. There is no evidence of valvular incompetency or insufficiency. Soft tissue edema noted. IMPRESSION: NO EVIDENCE OF DVT. Dictated By: Rafita Giang MD Electronically Signed By: Rafita Giang MD Signed Date/Time 11/20/19 1950 CC: Chace Thomas MD Last Vital Signs Date Time Temp Pulse Resp B/P (MAP) Pulse Ox O2 Delivery O2 Flow Rate FiO2 11/20/19 14:30 99.0 99 16 190/129 (149) 97 Room Air Disposition: HOME, SELF-CARE Condition: Stable Scripts Labetalol Hcl* (NORMODYNE*) 100 Mg Tablet 100 MG ORAL EVERY 12 HOURS for 30 Days, #60 TAB Prov: Chace Thomas MD 11/20/19 Hydrochlorothiazide* (HYDROCHLOROTHIAZIDE*) 25 Mg Tablet 25 MG ORAL DAILY, #30 TAB Prov: Chace Thomas MD 11/20/19 Metformin Hcl* (METFORMIN HCL*) 500 Mg Tablet 500 MG ORAL TWICE A DAY for 30 Days, #30 TAB Prov: Chace Thomas MD 11/20/19 Famotidine* (Pepcid 20mg tablet*) 20 Mg Tablet 20 MG ORAL DAILY, #30 TAB 0 Refills Prov: Chace Thomas MD 11/20/19 Omeprazole (OMEPRAZOLE) 10 Mg Capsule.dr 10 MG ORAL DAILY, #30 CAP 0 Refills Prov: Chace Thomas MD 11/20/19 Referrals: NOT CHOSEN [facility]/,REFERRING (PCP) Chace Thomas MD Nov 20, 2019 14:59
[2019-11-20 15:31] LABS: ANION GAP 10 mmol/L (5-15); BLOOD UREA NITROGEN 13 mg/dL (7-18); CALCIUM 9.8 MG/DL (8.5-10.1); CARBON DIOXIDE 27 MMOL/L (21-32); CHLORIDE 100 MMOL/L (98-107); CREATININE 1.4 MG/DL (0.55-1.30); POTASSIUM 3.7 MMOL/L (3.5-5.1); SODIUM 137 MMOL/L (136-145)
[2019-11-20] MEDS ORDERED: HYDROCHLOROTHIA25 MG ORAL (16:08)
[2019-11-20] MEDS ORDERED: OMEPRAZOLE10 M1 ORAL (16:08)
[2019-11-20] MEDS ORDERED: METFORMIN HCL500 M1 ORAL (16:08)
[2019-11-20] MEDS ORDERED: LABETALOL HCL100 MG ORAL (16:08)
[2019-11-20] MEDS ORDERED: FAMOTIDINE20 MG ORAL (16:08)
[2019-11-20 16:20] VITALS: BP 169/96
[2019-11-20 16:21] VITALS: BP 169/96
--- NOTE | 2019-11-20 16:54 | Diagnostic Imaging Report ---
EXAM: ULTRASOUND Venous Duplex Scan Blaine Leg CLINICAL HISTORY: Leg pain and edema. COMPARISON: None TECHNIQUE: Doppler examination include grayscale images obtained with and without compression, and color and spectral doppler analysis. FINDINGS: Doppler examination shows normal spontaneity, phasicity, compressibility in the bilateral lower extremities. There is no thrombus identified by grayscale. Normal color and spectral flow is identified. There is no evidence of valvular incompetency or insufficiency. Soft tissue edema noted. IMPRESSION: NO EVIDENCE OF DVT.
== END 2019-11-20 16:21 | disposition home or self-care (01) ==
LOC: EMR 14:51
DX: R60.0 Localized edema (principal); E11.9 Type 2 diabetes mellitus without complications; I50.9 Heart failure, unspecified; Z79.899 Other long term (current) drug therapy
CPT/HCPCS: 36415; 80048; 83880; 84484; 93005; 93970; 99284

== ENCOUNTER 2019-12-29 08:32 | Emergency (ER) | payer MEDICARE, OTHER ==
[~2019-12-29] VITALS: Ht 170.2 cm; Wt 113.4 kg
[2019-12-29] MEDS ORDERED: Omnipaque-300 100ml vial INJ PRN (08:45)
--- NOTE | 2019-12-29 08:47 | Emergency Room Report ---
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 severity is mild, he endorses a burning pain no aggravating or alleviating factors, patient denies any chest pain he does endorse some shortness of breath no nausea no vomiting patient versus diarrhea with no blood patient presents for evaluation and treatment Allergies: Coded Allergies: No Known Allergies (Verified , 08/04/09) COVID-19 Screening Contact w/high risk pt: No Experienced COVID-19 symptoms?: No COVID-19 Testing performed 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 Patient History Past Medical History: see triage record Reviewed Nursing Documentation: PMH: Agreed; PSxH: Agreed Nursing Documentation-PMH Past Medical History: No History, Except For Hx Cardiac Problems: Yes Hx Hypertension: Yes Hx Pacemaker: No Hx Asthma: No Hx COPD: No Hx Diabetes: Yes Hx Cancer: No Hx Gastrointestinal Problems: No Hx Dialysis: No Hx Neurological Problems: Yes Hx Cerebrovascular Accident: No Hx Seizures: No Review of Systems All Other Systems: negative except mentioned in HPI Physical Exam Vital Signs Date Time Temp Pulse Resp B/P (MAP) Pulse Ox O2 Delivery O2 Flow Rate FiO2 12/29/19 08:35 97.0 98 16 200/156 (171) 98 Sp02 EP Interpretation: reviewed, normal General Appearance: well appearing, no apparent distress, alert Head: normocephalic, atraumatic Eyes: bilateral eye PERRL, bilateral eye EOMI ENT: uvula midline, moist mucus membranes Neck: supple, thyroid normal, supple/symm/no masses Respiratory: lungs clear, no respiratory distress, no retraction, no accessory muscle use Cardiovascular #1: normal peripheral pulses, regular rate, rhythm, no edema, no gallop, no murmur Gastrointestinal: non tender, soft, no guarding, no rebound Musculoskeletal: normal inspection Neurologic: alert, oriented x3 Psychiatric: mood/affect normal Skin: no rash, warm/dry Medical Decision Making Diagnostic Impression: Primary Impression: Abdominal pain Qualified Codes: R10.13 - Epigastric pain Additional Impression: Gastroenteritis ER Course 34-year-old male presents with vague complaints of diarrhea, generalized abdominal pain differential diagnosis includes gastroenteritis cholecystitis cholelithiasis, gastritis GI cocktail, patient also noted to have a slightly elevated proBNP from previous visit, patient given Lasix 20 mg and nitroglycerin Patient's pain is well controlled, with GI cocktail, CT scan negative for acute intra-abdominal pathology Patient counseled that if his pain worsens to return to the ED strict return precautions discussed referral to PCP No evidence of appendicitis disposition home with return precautions follow-up with PCP Laboratory Tests Test 12/29/19 08:53 White Blood Count 5.2 K/UL (4.8-10.8) Red Blood Count 5.72 M/UL (4.70-6.10) Hemoglobin 15.8 G/DL (14.2-18.0) Hematocrit 46.5 % (42.0-52.0) Mean Corpuscular Volume 81 FL (80-99) Mean Corpuscular Hemoglobin 27.7 PG (27.0-31.0) Mean Corpuscular Hemoglobin Concent 34.0 G/DL (32.0-36.0) Red Cell Distribution Width 12.6 % (11.6-14.8) Platelet Count 267 K/UL (150-450) Mean Platelet Volume 6.0 FL (6.5-10.1) L Neutrophils (%) (Auto) 59.8 % (45.0-75.0) Lymphocytes (%) (Auto) 22.5 % (20.0-45.0) Monocytes (%) (Auto) 10.5 % (1.0-10.0) H Eosinophils (%) (Auto) 2.3 % (0.0-3.0) Basophils (%) (Auto) 4.9 % (0.0-2.0) H Sodium Level 134 MMOL/L (136-145) L Potassium Level 4.4 MMOL/L (3.5-5.1) Chloride Level 102 MMOL/L (98-107) Carbon Dioxide Level 26 MMOL/L (21-32) Anion Gap 6 mmol/L (5-15) Blood Urea Nitrogen 21 mg/dL (7-18) H Creatinine 1.4 MG/DL (0.55-1.30) H Estimated Glomerular Filtration Rate > 60 mL/min (>60) Glucose Level 239 MG/DL (74-106) H Calcium Level 9.2 MG/DL (8.5-10.1) Total Bilirubin 0.6 MG/DL (0.2-1.0) Aspartate Amino Transferase (AST) 19 U/L (15-37) Alanine Aminotransferase (ALT) 43 U/L (12-78) Alkaline Phosphatase 74 U/L (46-116) Troponin I 0.046 ng/mL (0.000-0.056) Pro-B-Type Natriuretic Peptide 2904 pg/mL (0-125) H Total Protein 6.0 G/DL (6.4-8.2) L Albumin 3.4 G/DL (3.4-5.0) Globulin 2.6 g/dL Albumin/Globulin Ratio 1.3 (1.0-2.7) Lipase 110 U/L (73-393) EKG Diagnostic Results EKG Time: 08:47 EP Interpretation: NSR, rate 89, QTc 472, no acute ST elevations, normal axis Rhythm Strip Diag. Results Rhythm Strip Time: 09:17 EP Interpretation: yes Rate: 89 Rhythm: NSR, no PVC's, no ectopy Chest X-Ray Diagnostic Results Chest X-Ray Diagnostic Results : Chest X-Ray Ordered: Yes # of Views/Limited/Complete: 1 View Indication: Shortness of Breath EP Interpretation: Yes Interpretation: other - Enlarged cardiac silhouette Impression: Other - Enlarged cardiac silhouette Electronically Signed by: Dimas Lorenzo MD CT/MRI/US Diagnostic Results CT/MRI/US Diagnostic Results : Impression Procedure: CT Abdomen Pelvis w/Contrast Clinical Indication: Abdominal pain Technique: No oral contrast utilized, per emergency room physician request IV administration nonionic contrast. Venous phase spiral acquisition obtained through the abdomen and pelvis. Multiplanar reconstructions were generated. Total dose length product 890 mGycm. CTDIvol(s) 17 mGy. Dose reduction achieved using automated exposure control Comparison: 03/14/2015 Findings: Lack of enteric contrast limits assessment of the GI tract. The appendix is normal. There are questionably small sigmoid diverticula. No evidence of diverticulitis. No small bowel distention. No free or loculated intraperitoneal gas or fluid is evident. The distal esophagus demonstrates mild wall thickening but this appearance is similar to the previous exam. The stomach and duodenum are unremarkable. The liver is mildly enlarged, unchanged from previously. There is equivocal mild gallbladder wall thickening, but no gallstones are evident no biliary ductal dilatation. The pancreas, spleen, adrenals, kidneys are unremarkable. No retroperitoneal or mesenteric mass or adenopathy. No pelvic mass or adenopathy. The bladder is unremarkable. No renal or ureteral calculi, hydronephrosis, or hydroureter. The heart is enlarged. The bones are unremarkable. Included lung bases demonstrate mild interlobular interstitial septal thickening and mosaic perfusion pattern Previously demonstrated free intraperitoneal fluid is no longer evident Impression: Limited assessment of the GI tract, due to lack of enteric contrast administration No definite acute abnormality Cardiomegaly Pulmonary basilar interstitial septal thickening and mosaic perfusion pattern, nonspecific but likely representing mild pulmonary edema Mild hepatomegaly Equivocal mild gallbladder wall thickening, no definite gallstones. Likely due to hemodynamic arrangements related to the cardiomegaly, but the possibility of acute acalculous cholecystitis or cholecystitis due to occult stone disease should also be considered. Mild esophageal wall thickening, could indicate esophagitis or could be baseline for this patient given similar findings on prior study The CT scanner at [facility] is accredited by the [employer] and the scans are performed using protocols designed to limit radiation exposure to as low as reasonably achievable to attain images of sufficient resolution adequate for diagnostic evaluation. Dictated By: Ronak Escobar MD Electronically Signed By:Ronak Escobar MD Signed Date/Time12/29/19 1125 CC: Dimas Lorenzo [id number] 0 Last Vital Signs Date Time Temp Pulse Resp B/P (MAP) Pulse Ox O2 Delivery O2 Flow Rate FiO2 12/29/19 08:35 97.0 98 16 200/156 (171) 98 Disposition: HOME, SELF-CARE Condition: Stable Scripts Ondansetron (Zofran) 4 Mg Tablet 4 MG ORAL Q8H PRN for Nausea & Vomiting, #10 TAB 0 Refills Prov: Dimas Lorenzo MD 12/29/19 Referrals: NOT CHOSEN [facility]/,REFERRING (PCP) [facility] Tatyana Agee [facility]. [facility] Patient Instructions: Abdominal Pain, Adult, Viral Gastroenteritis, Adult, [id number] Additional Instructions: The patient was provided with discharge instructions, notified to follow-up with a primary care doctor and or specialist in the next 24-48 hours, and to return to the ED if they have worsening of their symptoms. Please note that this report is being documented using [employer] technology. This can lead to erroneous entry secondary to incorrect interpretation by the dictating instrument. Dimas Lorenzo MD Dec 29, 2019 08:47
[2019-12-29 08:56] VITALS: BP 182/136
[2019-12-29] MEDS ORDERED: Mylanta II UD 30ml ORAL ONE (09:00)
[2019-12-29 09:17] LABS: BASOPHILS % (AUTO) 4.9 % (0.0-2.0); EOSINOPHILS % (AUTO) 2.3 % (0.0-3.0); HEMATOCRIT 46.5 % (42.0-52.0); HEMOGLOBIN 15.8 G/DL (14.2-18.0); LYMPHOCYTES % (AUTO) 22.5 % (20.0-45.0); MEAN CORPUSCULAR VOLUME 81 FL (80-99); MONOCYTES % (AUTO) 10.5 % (1.0-10.0); NEUTROPHILS % (AUTO) 59.8 % (45.0-75.0); PLATELET COUNT 267 K/UL (150-450); RED BLOOD COUNT 5.72 M/UL (4.70-6.10); RED CELL DISTRIBUTION WIDTH 12.6 % (11.6-14.8); WHITE BLOOD COUNT 5.2 K/UL (4.8-10.8)
[2019-12-29 09:52] LABS: ANION GAP 6 mmol/L (5-15); BLOOD UREA NITROGEN 21 mg/dL (7-18); CALCIUM 9.2 MG/DL (8.5-10.1); CARBON DIOXIDE 26 MMOL/L (21-32); CHLORIDE 102 MMOL/L (98-107); CREATININE 1.4 MG/DL (0.55-1.30); POTASSIUM 4.4 MMOL/L (3.5-5.1); SODIUM 134 MMOL/L (136-145)
[2019-12-29 09:56] LABS: ALANINE AMINOTRANSFERASE 43 U/L (12-78); ALBUMIN 3.4 G/DL (3.4-5.0); ALBUMIN/GLOBULIN RATIO 1.3 (1.0-2.7); ALKALINE PHOSPHATASE 74 U/L (46-116); ASPARTATE AMINO TRANSFERASE 19 U/L (15-37); BILIRUBIN,TOTAL 0.6 MG/DL (0.2-1.0)
[2019-12-29] MEDS ORDERED: Labetalol 5mg/ml 20ml vial IV ONE (10:00)
[2019-12-29] MEDS ORDERED: Nitroglycerin 2% oint pkt TOPIC ONE ×2 (10:15→10:46)
[2019-12-29 11:17] VITALS: BP 172/101
--- NOTE | 2019-12-29 11:30 | Diagnostic Imaging Report ---
Clinical Indication: Abdominal pain Technique: No oral contrast utilized, per emergency room physician request IV administration nonionic contrast. Venous phase spiral acquisition obtained through the abdomen and pelvis. Multiplanar reconstructions were generated. Total dose length product 890 mGycm. CTDIvol(s) 17 mGy. Dose reduction achieved using automated exposure control Comparison: 03/14/2015 Findings: Lack of enteric contrast limits assessment of the GI tract. The appendix is normal. There are questionably small sigmoid diverticula. No evidence of diverticulitis. No small bowel distention. No free or loculated intraperitoneal gas or fluid is evident. The distal esophagus demonstrates mild wall thickening but this appearance is similar to the previous exam. The stomach and duodenum are unremarkable. The liver is mildly enlarged, unchanged from previously. There is equivocal mild gallbladder wall thickening, but no gallstones are evident no biliary ductal dilatation. The pancreas, spleen, adrenals, kidneys are unremarkable. No retroperitoneal or mesenteric mass or adenopathy. No pelvic mass or adenopathy. The bladder is unremarkable. No renal or ureteral calculi, hydronephrosis, or hydroureter. The heart is enlarged. The bones are unremarkable. Included lung bases demonstrate mild interlobular interstitial septal thickening and mosaic perfusion pattern Previously demonstrated free intraperitoneal fluid is no longer evident Impression: Limited assessment of the GI tract, due to lack of enteric contrast administration No definite acute abnormality Cardiomegaly Pulmonary basilar interstitial septal thickening and mosaic perfusion pattern, nonspecific but likely representing mild pulmonary edema Mild hepatomegaly Equivocal mild gallbladder wall thickening, no definite gallstones. Likely due to hemodynamic arrangements related to the cardiomegaly, but the possibility of acute acalculous cholecystitis or cholecystitis due to occult stone disease should also be considered. Mild esophageal wall thickening, could indicate esophagitis or could be baseline for this patient given similar findings on prior study The CT scanner at [facility] is accredited by the [employer] and the scans are performed using protocols designed to limit radiation exposure to as low as reasonably achievable to attain images of sufficient resolution adequate for diagnostic evaluation.
[2019-12-29] MEDS ORDERED: ZOFRAN4 MG ORAL (11:36)
[2019-12-29 11:48] VITALS: BP 168/101
--- NOTE | 2019-12-29 17:14 | Diagnostic Imaging Report ---
Indication: Shortness of breath Technique: One view of the chest Comparison: 10/18/2019 Findings: Bilateral mixed mostly interstitial edema and cardiomegaly are similar to the previous study Impression: Cardiomegaly. Mild interstitial edema, similar to prior exam of 10/18/2019.
--- NOTE | 2019-12-30 13:47 | Cardiology Report ---
APPROVED REPORT EKG Measurement Heart [id number] <Conclusion> Normal sinus rhythm Possible Left atrial enlargement Left ventricular hypertrophy Nonspecific T wave abnormality Prolonged QT Abnormal ECG
== END 2019-12-29 11:49 | disposition home or self-care (01) ==
LOC: EMR 08:45
DX: K52.9 Noninfective gastroenteritis and colitis, unspecified (principal); R10.13 Epigastric pain; I11.0 Hypertensive heart disease with heart failure; E11.9 Type 2 diabetes mellitus without complications; I51.7 Cardiomegaly
CPT/HCPCS: 36415; 71045; 74177; 80053; 83690; 83880; 84484; 85025; 93005; 96374; 96375; 99284; J1940; J2405; Q9965

== ENCOUNTER 2020-01-02 00:42 | Inpatient (IN) | payer MEDICARE ==
[~2020-01-02] VITALS: Ht 175.3 cm; Wt 111.6 kg
[2020-01-02] VITALS (7 sets, daily range): BP systolic 158–219; BP diastolic 95–145
[~2020-01-02 00:42] MED LIST changes: +ZOFRAN4 MG ORAL
--- NOTE | 2020-01-02 01:00 | NUR ---
ED Nurse Note: Patient walked into ED for c/o nonradiating chest pain with tightness onset around 1900 yesterday. Patient states he had similar pain a few days ago and was seen here at [facility] and was diagnosed with GERD. Patient notes the pain has now returned. Patient denies nausea, vomiting, diarrhea or fever. Upon ED arrival, patient BP is elevated. He states his BP is always elevated and he does take BP medication at home as prescribed. Patient is breathing normal and unalbored, able to speak in full sentences. Patient connected to threat monitoring analyst. Safety measures met; will continue to monitor.
[2020-01-02] MEDS ORDERED: Nitroglycerin 2% oint pkt TOPIC ONE (01:30)
[2020-01-02] MEDS ORDERED: Morphine Sulfate 4mg/ml Inj (IV USE ONLY) IVP ONE (01:30)
[2020-01-02 01:38] LABS: EOSINOPHILS % (AUTO) 1.3 % (0.0-3.0); HEMATOCRIT 44.8 % (42.0-52.0); HEMOGLOBIN 15.8 G/DL (14.2-18.0); LYMPHOCYTES % (AUTO) 29.8 % (20.0-45.0); MEAN CORPUSCULAR VOLUME 80 FL (80-99); MONOCYTES % (AUTO) 7.6 % (1.0-10.0); NEUTROPHILS % (AUTO) 57.2 % (45.0-75.0); PLATELET COUNT 283 K/UL (150-450); RED BLOOD COUNT 5.62 M/UL (4.70-6.10); RED CELL DISTRIBUTION WIDTH 12.4 % (11.6-14.8); WHITE BLOOD COUNT 6.4 K/UL (4.8-10.8)
[2020-01-02 01:53] LABS: ANION GAP 8 mmol/L (5-15); BLOOD UREA NITROGEN 13 mg/dL (7-18); CALCIUM 9.1 MG/DL (8.5-10.1); CARBON DIOXIDE 25 MMOL/L (21-32); CHLORIDE 101 MMOL/L (98-107); CREATININE 1.3 MG/DL (0.55-1.30); POTASSIUM 4.1 MMOL/L (3.5-5.1); SODIUM 134 MMOL/L (136-145)
[2020-01-02 02:04] LABS: ALANINE AMINOTRANSFERASE 24 U/L (12-78); ALBUMIN 3.3 G/DL (3.4-5.0); ALBUMIN/GLOBULIN RATIO 1.1 (1.0-2.7); ALKALINE PHOSPHATASE 59 U/L (46-116); ASPARTATE AMINO TRANSFERASE 17 U/L (15-37); BILIRUBIN,TOTAL 1.6 MG/DL (0.2-1.0)
--- NOTE | 2020-01-02 02:10 | Emergency Room Report ---
History of Present Illness General Chief Complaint: Chest Pain Source: Patient Present Illness HPI 34-year-old male with past medical history of CHFrEF 35% (on ECHO in 2016), accelerated hypertension, dyslipidemia, diabetes, noncompliance, obesity presents to the ER with substernal chest pain that began at 7 PM. Is intermittent, nonradiating. Associated with nausea without vomiting. He states that his father prematurely of a cardiac arrest from [place] at the age of 45. Patient does not have a agricultural production engineer and has not had a recent angiogram or echocardiogram. Denies fevers, chills, cough, dysuria, hematuria or other symptoms The patient's symptoms were gradual onset, severity was moderate, duration since 7 PM. Quality: Aching Past medical history: CHF, hypertension, dyslipidemia, diabetes, noncompliance, obesity Past surgical history: Denies Smoking: Positive Alcohol use: Denies Drug use: Marijuana Review of systems: CONST: No fevers or chills, No night sweats PULMONARY: No productive cough, ++ shortness of breath CARDIAC: ++ chest pain, No palpitations GI: No vomiting, No diarrhea , No melena_or_BRBPR : No dysuria, No hematuria, No discharge NEURO: No new_focal_weakness_or_numbness, No confusion, No vision changes 14 point Review of Systems is otherwise negative except per HPI Physical Exam: GENERAL: Awake_alert_ nontoxic, no acute distress Spo2 94% on RA -normal EYES: Extraocular muscles are intact. Conjunctivae clear. Lids without swelling ENT: External nose and ear normal_in_appearance. Oropharynx clear. Head_atraum atic, Moist_oral_mucosa NECK: No JVD. No meningismus. No thyromegaly. Supple. Trachea midline RESP: Normal respiratory effort. Symmetric rise. No stridor. Clear_to_auscultation_No_rales_No_wheezes CARDIAC: Regular rate and regular rhytm. No_significant pedal edema. ABDOMEN: Soft. Nondistended. Nontender_No_rebound_or_guarding. MSK: Normal muscle tone, without rigidity. Extremities without asymmetric deformity or swelling. SKIN: Warm and dry. No visible cyanosis or pallor NEUROLOGIC: Alert, oriented x3. Motor_and_sensation_grossly_intact. No truncal ataxia. Gait_normal Psych: Normal mood and affect, normal judgment and insight - COORDINATION OF CARE Case was discussed with: Patient , Patient's Physician Any labs and imaging that were ordered were interpreted as part of the medical decision making: Medical Decision Making/Plan: Differential diagnosis includes acute myocardial infarction, acute coronary syndrome and unstable angina, pulmonary embolism, pneumothorax, pneumonia, and aortic dissection, among others. Patient is currently well appearing but has severely elevated blood pressure. He has no focal neurologic deficits. Not encephalopathic. Pulses are equal and symmetric in the bilateral upper and lower extremities. EKG shows normal sinus rhythm. No evidence of STEMI, and initial troponin is negative. Probably LVH. QT interval is prolonged at 478. Chest xray shows cardiomegaly and interstitial edema. No evidence of pneumothorax, pneumonia, or significant pleural effusion. Labs show elevated troponin at 0.065, NSTEMI. Also has ROSCOE. Likely secondary to severely elevated blood pressure. BNP is elevated greater than 4000, consistent with CHF exacerbation. CT angio was ordered to evaluate for massive PE. Result is negative for PE or dissection. No pericardial effusion. Aspirin ordered, however patient alleges that he has an aspirin allergy. Will give Plavix instead. However, given that chest pain is currently resolved, risks likely outweigh benefits of IV heparin at this time, so deferred. Also gave Lasix, Vasotec, and nitro as treatment for his CHF exacerbation. Diltiazem for HTN. Did not give betablocker 2/2 acute CHF exacerbation. The pain is not classic for pericarditis or myocarditis, and the patient has no significant risk factors for a pericardial effusion and has stable vitals signs, unlikely to have tamponade. Pain is not likely to be pulmonary embolism, patient has no significant PE risk factors. The presentation is not consistent with dissection, pain is not severe, radiating to back, or tearing in nature. Has normal bilateral radial and pedal pulses. However given patients presentation and risk factors, patient will be admitted for serial troponins and risk stratification and evaluation for likely stress testing. This patient appears to be a suitable candidate for transfer to telemetry floor at this time with orders from the admitting physician who is aware of the patient's evaluation, ancillary test findings, and current condition, and agrees with treatment and disposition. I spoke with Dr. Kim, and reviewed the patients presentation, workup, results, and treatment. They will admit the patient for further care and evaluation, and assume care of the patient at this time. Allergies: Coded Allergies: No Known Allergies (Verified , 08/04/09) COVID-19 Screening Contact w/high risk pt: No Experienced COVID-19 symptoms?: No COVID-19 Testing performed WINE MAKER: No Nursing Documentation-PMH Past Medical History: No History, Except For Hx Cardiac Problems: Yes Hx Hypertension: Yes Hx Pacemaker: No Hx Asthma: No Hx COPD: No Hx Diabetes: Yes Hx Cancer: No Hx Gastrointestinal Problems: No Hx Dialysis: No Hx Neurological Problems: Yes Hx Cerebrovascular Accident: No Hx Seizures: No Physical Exam Vital Signs Date Time Temp Pulse Resp B/P (MAP) Pulse Ox O2 Delivery O2 Flow Rate FiO2 01/02/20 00:42 98.2 93 24 186/137 (153) 95 Room Air Sp02 EP Interpretation: reviewed, normal Procedures Critical Care Time Critical Care Time Critical Care Statement Organ systems at risk include: cardiac / circulatory Critical care performed for 45 minutes. Time is exclusive of separately billable procedures. Time includes: direct patient care, continuous monitoring and multiple patient reassessment, coordination of patient care, review of patient's medical records, medical consultation, family consultation regarding treatment decisions and documentation of patient care. Medical Decision Making Diagnostic Impression: Primary Impression: NSTEMI (non-ST elevated myocardial infarction) Additional Impressions: CHF (congestive heart failure) HTN (hypertension) Hypertensive emergency Noncompliance with medication regimen Diabetes mellitus Edema ACS (acute coronary syndrome) Cardiomyopathy EKG Diagnostic Results PA Scribe Text 12-lead EKG (interpreted by me) Time: 0 116 Indication: Rhythm analysis Tracing visualized and Interpreted by me. Rhythm: Normal sinus rhythm Rate: 86 bpm QTc: 478 Morphology: No_significant_ST_elevations_or_depressions, No STEMI Impression: Sinus rhythm. Left ventricular hypertrophy. Nonspecific ST changes. Prolonged QT interval Rhythm Strip Diag. Results Rhythm Strip Time: 02:09 EP Interpretation: yes Rate: 97 Rhythm: NSR, no PVC's, no ectopy Chest X-Ray Diagnostic Results Chest X-Ray Diagnostic Results : PA Scribe Text Chest X-Ray: Views: [ 1 ] view(s) Indication: [Chest pain] Findings: cardiomegaly. Interstitial fluid mediastinum normal. No infiltrate. Impression: Cardiomegaly, interstitial fluid no infiltrate The X-ray(s) were independently viewed and interpreted contemporaneously Electronically signed by Salud mccord, CT/MRI/US Diagnostic Results CT/MRI/US Diagnostic Results : Impression CTA Chest w Contrast EXAM: CT Angiography Chest With Intravenous Contrast CLINICAL HISTORY: Chest pain. TECHNIQUE: Axial computed tomographic angiography images of the chest with intravenous contrast. CTDI is 84.90 mGy and DLP is 591.70 mGy-cm. One or more of the following dose reduction techniques were used: automated exposure control, adjustment of the mA and/or kV according to patient size, use of iterative reconstruction technique. MIP reconstructed images were created and reviewed. Coronal and sagittal reformatted images were created and reviewed. COMPARISON: No relevant prior studies available. FINDINGS: Pulmonary arteries: Unremarkable. No pulmonary embolism. Aorta: No acute findings. No thoracic aortic aneurysm. Lungs: Bibasilar subsegmental atelectasis. Subsegmental atelectasis in the lingula. No mass. Pleural space: There is a trace left pleural effusion. No pneumothorax. Heart: There is coronary artery atherosclerosis. No significant pericardial effusion. No evidence of RV dysfunction. Bones/joints: No acute fracture. No dislocation. Soft tissues: Prominent breast tissue bilaterally consistent with gynecomastia. Lymph nodes: Unremarkable. No enlarged lymph nodes. IMPRESSION: 1. No evidence of pulmonary embolism. 2. Coronary artery atherosclerosis. Dictated By: Titi Ruano MD Reevaluation Time: 02:10 Last Vital Signs Date Time Temp Pulse Resp B/P (MAP) Pulse Ox O2 Delivery O2 Flow Rate FiO2 01/02/20 01:41 196/138 01/02/20 01:00 88 14 Room Air 01/02/20 01:00 98.2 100 Status: improved Disposition: ADMITTED INPATIENT Admit Decision Time: 02:10 Condition: Stable Referrals: NOT CHOSEN IPA/,REFERRING (PCP) Salud Frank D.O. Jan 02, 2020 02:10
[2020-01-02 02:12] LABS: BILIRUBIN,DIRECT 0.3 MG/DL (0.0-0.3)
[2020-01-02] MEDS ORDERED: Omnipaque 350 100ml vial INJ PRN ×2 (02:15)
[2020-01-02] MEDS ORDERED: Enalaprilat 2.5mg/2ml Inj IV ONE (02:30)
--- NOTE | 2020-01-02 02:55 | NUR ---
ED Nurse Note: Patient returned from CT. No complications. BP remains elevated; ERMD aware. Patient is sleepy and feels better after pain medication. Will continue to monitor.
[2020-01-02] MEDS ORDERED: dilTIAZem HCl 25mg/5ml Inj IVP ONE (03:00)
--- NOTE | 2020-01-02 03:24 | Diagnostic Imaging Report ---
EXAM: CT Angiography Chest With Intravenous Contrast CLINICAL HISTORY: Chest pain. TECHNIQUE: Axial computed tomographic angiography images of the chest with intravenous contrast. CTDI is 84.90 mGy and DLP is 591.70 mGy-cm. One or more of the following dose reduction techniques were used: automated exposure control, adjustment of the mA and/or kV according to patient size, use of iterative reconstruction technique. MIP reconstructed images were created and reviewed. Coronal and sagittal reformatted images were created and reviewed. COMPARISON: No relevant prior studies available. FINDINGS: Pulmonary arteries: Unremarkable. No pulmonary embolism. Aorta: No acute findings. No thoracic aortic aneurysm. Lungs: Bibasilar subsegmental atelectasis. Subsegmental atelectasis in the lingula. No mass. Pleural space: There is a trace left pleural effusion. No pneumothorax. Heart: There is coronary artery atherosclerosis. No significant pericardial effusion. No evidence of RV dysfunction. Bones/joints: No acute fracture. No dislocation. Soft tissues: Prominent breast tissue bilaterally consistent with gynecomastia. Lymph nodes: Unremarkable. No enlarged lymph nodes. IMPRESSION: 1. No evidence of pulmonary embolism. 2. Coronary artery atherosclerosis.
--- NOTE | 2020-01-02 03:45 | NUR ---
ED Nurse Note: Report given to MICHELE Frazier.
--- NOTE | 2020-01-02 04:00 | NUR ---
ED Nurse Note: Patient is stable for transfer to tele unit at this time per ERMD. Patient is aaox4, breathing is normal and unlabored at this time. HR is WNL, BP is elevated at 183/116 which ERMD and receiving nurse are aware of. Patient taken to unit via gurney, connected to cardiac specialist by hoa and RN. Patient's IVs are intact and patent. All belongings sent to unit with patient. He is in no acute distress and pain is manageable at this time. Patient transferred to tele bed without complication and care transferred to MICHELE Frazier.
--- NOTE | 2020-01-02 04:40 | NUR ---
NURSE NOTES: Received patient report from ZOEY Shaw RN. Patient is AO x4. Patient shows no signs of distress or chest pain at the time. Patient is on room air saturating at 98% with no signs of respiratory distress. Belongings list reviewed and signed. Patient on vehicle monitor technician shows sinus rhythm. BP is still elevated at 172/115. IV sites patent and flushed. There are no signs of erythema, infiltration, or bleeding. Skin is intact. Bed is in the lowest position, call light is within reach, side rails up x3. Called Dr. Kim for admission orders. Awaiting call back. Will continue to monitor.
--- NOTE | 2020-01-02 06:57 | NUR ---
NURSE NOTES: Dr. Kim was called again. Awaiting call back.
[2020-01-02] MEDS ORDERED: Enalaprilat 2.5mg/2ml Inj IV PRN (07:15)
[2020-01-02] MEDS ORDERED: Nitroglycerin Subl 0.4mg tab SL PRN (07:15)
[2020-01-02] MEDS ORDERED: dilTIAZem HCl 25mg/5ml Inj IV PRN (07:15)
[2020-01-02] MEDS ORDERED: Miralax 17gm pkt ORAL PRN (07:15)
[2020-01-02] MEDS ORDERED: HydrALAZINE 50mg tab ORAL PRN (07:15)
[2020-01-02] MEDS ORDERED: Albuterol/Ipratropium 3ml neb HHN PRN (07:15)
--- NOTE | 2020-01-02 07:50 | NUR ---
NURSE NOTES: received report from MICHELE Frazier. Pt is resting in bed, stable and sleeping. Pt on RA. no s/s or complaint of distress at this time. Bilateral lower extremity edema noted, 2+. Pt repots having to pee last night, d/t lasix, otherwise reports feeling ok. Pt has 2 IVs, L Hand 20g SL asymptomatic and intact, RAC 20g SL asymptomatic and intact. Pt bed low and locked, call light in reach, and bed alarm on. Pt gait is stable but educated to call for help if needed.
--- NOTE | 2020-01-02 07:53 | NUR ---
NURSE HAND-OFF REPORT: Important Events on Shift:[Admission/ Heparin drip] Patient Status: [Full code] Diet: [Cardiac/ diabetic] Pending Orders: [2 D echo] Pending Results/Labs:[NA] Pending MD notification:[NA] Latest Vital Signs: Temperature 97.7 , Pulse 80 , B/P 172 /115 , Respiratory Rate 20 , O2 SAT 98 , Room Air, O2 Flow Rate . Vital Sign Comment: [NA] EKG Rhythm: Sinus Rhythm Rhythm change?: N MD Notified?: - MD Response: Latest Gaston Fall Score: 0 Fall Risk: Low Risk Safety Measures: Call light Within Reach, Bed Alarm Zone 2, Side Rails Side Rails x2, Bed position Low and Locked. Fall Precautions: Patient Fall Education Report given to [MICHELE Matos].
--- NOTE | 2020-01-02 08:48 | NUR ---
NURSE NOTES: Pt refused ASA this morning stating "i have DM, ASA makes my eyes swell up... detached retina " Did not give ASA at this time. Will notify pharmacist. Addendum: 01/02/20 at 1228 by Shawna Stephens RN RN Elidia notified, order to DC ASA. No other new orders at this time.
[2020-01-02] MEDS ORDERED: Aspirin Baby 81mg ORAL SCH ×2 (09:00)
[2020-01-02] MEDS ORDERED: hydroCHLOROthiazide 25mg cap ORAL SCH (09:00)
[2020-01-02] MEDS ORDERED: Heparin 5000 units/ml inj SUBQ SCH (09:00)
[2020-01-02 10:17] LABS: BASOPHILS % (AUTO) 3.5 % (0.0-2.0); EOSINOPHILS % (AUTO) 1.3 % (0.0-3.0); HEMATOCRIT 46.4 % (42.0-52.0); HEMOGLOBIN 16.1 G/DL (14.2-18.0); LYMPHOCYTES % (AUTO) 19.7 % (20.0-45.0); MEAN CORPUSCULAR VOLUME 80 FL (80-99); MONOCYTES % (AUTO) 8.9 % (1.0-10.0); NEUTROPHILS % (AUTO) 66.6 % (45.0-75.0); PLATELET COUNT 291 K/UL (150-450); RED BLOOD COUNT 5.78 M/UL (4.70-6.10); RED CELL DISTRIBUTION WIDTH 12.5 % (11.6-14.8); WHITE BLOOD COUNT 6.5 K/UL (4.8-10.8)
[2020-01-02 10:36] LABS: ANION GAP 8 mmol/L (5-15); BLOOD UREA NITROGEN 11 mg/dL (7-18); CALCIUM 8.9 MG/DL (8.5-10.1); CARBON DIOXIDE 28 MMOL/L (21-32); CHLORIDE 99 MMOL/L (98-107); CREATININE 1.3 MG/DL (0.55-1.30); PHOSPHORUS 3.9 MG/DL (2.5-4.9); POTASSIUM 3.8 MMOL/L (3.5-5.1); SODIUM 135 MMOL/L (136-145)
[2020-01-02] MEDS ORDERED: Heparin 5000 units/ml inj IV SCH ×2 (10:53→18:45)
--- NOTE | 2020-01-02 11:17 | Consultation ---
History of Present Illness General Date patient seen: Jan 02, 2020 Chief Complaint: Chest Pain Present Illness HPI 34-year-old male with past medical history of CHF, EF 35% (on ECHO in 2016), accelerated hypertension, diabetes, noncompliance, presented to the ER with substernal chest pain that began at 7 PM. Is intermittent, nonradiating. Associated with nausea without vomiting. His troponin was elevated in ER. The CT angio was negative was for PE. Allergies: Coded Allergies: No Known Allergies (Verified , 08/04/09) Medication History Scheduled Famotidine* (Pepcid 20mg tablet*), 20 MG ORAL DAILY Hydrochlorothiazide* (Hydrochlorothiazide*), 25 MG ORAL DAILY Labetalol Hcl* (Normodyne*), 100 MG ORAL EVERY 12 HOURS Metformin Hcl* (Metformin Hcl*), 500 MG ORAL TWICE A DAY Omeprazole (Omeprazole), 10 MG ORAL DAILY Ranitidine Hcl* (Zantac), 150 MG ORAL TWICE A DAY Scheduled PRN Ondansetron (Zofran), 4 MG ORAL Q8H PRN for Nausea & Vomiting Patient History Healthcare decision maker Resuscitation status Advanced Directive on File Past Medical/Surgical History Past Medical/Surgical History: (1) Hypertension (2) Diabetes mellitus (3) Cardiomyopathy (4) CHF (congestive heart failure) (5) Noncompliance with medication regimen Review of Systems All Other Systems: negative except mentioned in HPI Physical Exam General Appearance: WD/WN Lines, tubes and drains: peripheral HEENT: normocephalic, anicteric Neck: non-tender, normal alignment Respiratory/Chest: chest wall non-tender, lungs clear Breasts: no masses Cardiovascular/Chest: normal peripheral pulses Abdomen: normal bowel sounds, non tender Genitourinary/Rectal: normal genital exam Extremities: normal range of motion Skin Exam: normal pigmentation Neurologic: long winder tender II-XII grossly normal Lymphatic: anterior cervical Last 24 Hour Vital Signs Date Time Temp Pulse Resp B/P (MAP) Pulse Ox O2 Delivery O2 Flow Rate FiO2 01/02/20 09:25 98.1 01/02/20 09:00 Room Air 01/02/20 08:46 78 176/114 01/02/20 08:00 98.1 78 19 176/114 (134) 98 01/02/20 08:00 86 01/02/20 06:23 Room Air 01/02/20 04:00 98.1 85 16 183/116 100 Room Air 01/02/20 04:00 97.7 80 20 172/115 (134) 98 01/02/20 04:00 84 01/02/20 03:13 89 204/136 01/02/20 02:55 98.2 100 16 219/145 100 Room Air 01/02/20 02:52 196/138 01/02/20 02:10 98.2 01/02/20 01:41 196/138 01/02/20 01:00 88 14 Room Air 01/02/20 01:00 98.2 88 14 196/138 100 Room Air 01/02/20 00:42 98.2 93 24 186/137 (153) 95 Room Air Intake and Output 01/01/20 01/02/20 19:00 07:00 Intake Total 200 ml Output Total 800 ml Balance -600 ml Intake Oral 200 ml Output Urine Total 800 ml # Voids 2 Laboratory Tests Test 01/02/20 01:15 01/02/20 09:40 White Blood Count 6.4 K/UL (4.8-10.8) 6.5 K/UL (4.8-10.8) Red Blood Count 5.62 M/UL (4.70-6.10) 5.78 M/UL (4.70-6.10) Hemoglobin 15.8 G/DL (14.2-18.0) 16.1 G/DL (14.2-18.0) Hematocrit 44.8 % (42.0-52.0) 46.4 % (42.0-52.0) Mean Corpuscular Volume 80 FL (80-99) 80 FL (80-99) Mean Corpuscular Hemoglobin 28.1 PG (27.0-31.0) 27.9 PG (27.0-31.0) Mean Corpuscular Hemoglobin Concent 35.4 G/DL (32.0-36.0) 34.8 G/DL (32.0-36.0) Red Cell Distribution Width 12.4 % (11.6-14.8) 12.5 % (11.6-14.8) Platelet Count 283 K/UL (150-450) 291 K/UL (150-450) Mean Platelet Volume 6.3 FL (6.5-10.1) L 6.1 FL (6.5-10.1) L Neutrophils (%) (Auto) 57.2 % (45.0-75.0) 66.6 % (45.0-75.0) Lymphocytes (%) (Auto) 29.8 % (20.0-45.0) 19.7 % (20.0-45.0) L Monocytes (%) (Auto) 7.6 % (1.0-10.0) 8.9 % (1.0-10.0) Eosinophils (%) (Auto) 1.3 % (0.0-3.0) 1.3 % (0.0-3.0) Basophils (%) (Auto) 4.0 % (0.0-2.0) H 3.5 % (0.0-2.0) H D-Dimer 0.90 mg/L FEU (0.00-0.49) H Sodium Level 134 MMOL/L (136-145) L 135 MMOL/L (136-145) L Potassium Level 4.1 MMOL/L (3.5-5.1) 3.8 MMOL/L (3.5-5.1) Chloride Level 101 MMOL/L (98-107) 99 MMOL/L (98-107) Carbon Dioxide Level 25 MMOL/L (21-32) 28 MMOL/L (21-32) Anion Gap 8 mmol/L (5-15) 8 mmol/L (5-15) Blood Urea Nitrogen 13 mg/dL (7-18) 11 mg/dL (7-18) Creatinine 1.3 MG/DL (0.55-1.30) 1.3 MG/DL (0.55-1.30) Estimat Glomerular Filtration Rate > 60 mL/min (>60) > 60 mL/min (>60) Glucose Level 185 MG/DL (74-106) H 222 MG/DL (74-106) H Calcium Level 9.1 MG/DL (8.5-10.1) 8.9 MG/DL (8.5-10.1) Total Bilirubin 1.6 MG/DL (0.2-1.0) H Direct Bilirubin 0.3 MG/DL (0.0-0.3) Aspartate Amino Transf (AST/SGOT) 17 U/L (15-37) Alanine Aminotransferase (ALT/SGPT) 24 U/L (12-78) Alkaline Phosphatase 59 U/L (46-116) Troponin I 0.065 ng/mL (0.000-0.056) Pro-B-Type Natriuretic Peptide 4662 pg/mL (0-125) H Total Protein 6.3 G/DL (6.4-8.2) L Albumin 3.3 G/DL (3.4-5.0) L Globulin 3.0 g/dL Albumin/Globulin Ratio 1.1 (1.0-2.7) Lipase 61 U/L (73-393) L Activated Partial Thromboplast Time 28 SEC (23-33) Phosphorus Level 3.9 MG/DL (2.5-4.9) Magnesium Level 1.8 MG/DL (1.8-2.4) Microbiology Date/Time Source Procedure Growth Status 01/02/20 01:20 Nasopharynx SARS-CoV-2 RdRp Gene Assay - Final Complete Height (Feet): 5 Height (Inches): 9.00 Weight (Pounds): 192 Medications Current Medications Medications (Trade) Dose Ordered Sig/Zeferino Route PRN Reason Start Time Stop Time Status Last Admin Dose Admin Acetaminophen (Tylenol) 650 mg Q4H PRN ORAL FEVER 01/02/20 07:15 02/01/20 07:14 01/02/20 08:55 Albuterol/ Ipratropium (Albuterol/ Ipratropium) 3 ml Q4H PRN HHN Shortness of Breath 01/02/20 07:15 01/07/20 07:14 Aspirin (ASA) 162 mg DAILY ORAL 01/02/20 09:00 02/16/20 08:59 Dextrose (Dextrose 50%) 25 ml Q30M PRN IV Hypoglycemia 01/02/20 07:15 04/01/20 07:14 Dextrose (Dextrose 50%) 50 ml Q30M PRN IV Hypoglycemia 01/02/20 07:15 04/01/20 07:14 Diltiazem HCl (Cardizem) 10 mg Q1H PRN IV heart rate more than 120, 01/02/20 07:15 02/01/20 07:14 Enalaprilat (Vasotec) 2.5 mg Q6H PRN IV sbp more than 160 01/02/20 07:15 02/01/20 07:14 Heparin Sodium (Porcine) (Heparin 5000 units/ml) 5,000 units ONCE IV 01/02/20 10:53 01/02/20 13:00 Heparin Sodium/ Dextrose 500 ml @ 20.16 mls/ hr ADJUST PER PROTOCOL IV 01/02/20 10:53 02/01/20 10:52 Hydralazine HCl (Apresoline) 50 mg Q6H PRN ORAL BP>160 01/02/20 07:15 04/01/20 07:14 Hydrochlorothiazide (Hydrodiuril) 25 mg DAILY ORAL 01/02/20 09:00 02/01/20 08:59 01/02/20 08:46 Insulin Aspart (NovoLOG) BEFORE MEALS AND HS SUBQ 01/02/20 11:30 04/01/20 11:29 Labetalol HCl (Normodyne) 100 mg EVERY 12 HOURS ORAL 01/02/20 09:00 02/01/20 08:59 01/02/20 08:46 Nitroglycerin (Ntg) 0.4 mg Q5M PRN SL Prn Chest Pain 01/02/20 07:15 02/01/20 07:14 Ondansetron HCl (Zofran) 4 mg Q6H PRN IVP Nausea & Vomiting 01/02/20 07:15 02/01/20 07:14 Pantoprazole (Protonix) 40 mg DAILY ORAL 01/02/20 09:00 02/01/20 08:59 01/02/20 08:46 Polyethylene Glycol (Miralax) 17 gm DAILYPRN PRN ORAL Constipation 01/02/20 07:15 02/01/20 07:14 Temazepam (Restoril) 15 mg HSPRN PRN ORAL Insomnia 01/02/20 07:15 01/09/20 07:14 Assessment/Plan Problem List: (1) NSTEMI (non-ST elevated myocardial infarction) ICD Codes: I21.4 - Non-ST elevation (NSTEMI) myocardial infarction SNOMED: 80219839 (2) Hypertensive emergency ICD Codes: I10 - Essential (primary) hypertension SNOMED: 012149064 (3) CHF (congestive heart failure) ICD Codes: I50.9 - Heart failure, unspecified SNOMED: 10371002 (4) Noncompliance with medication regimen ICD Codes: Z91.14 - Patient's other noncompliance with medication regimen SNOMED: 014580767 (5) Cardiomyopathy ICD Codes: I42.9 - Cardiomyopathy, unspecified SNOMED: 28659185 (6) Diabetes mellitus ICD Codes: E11.9 - Type 2 diabetes mellitus without complications SNOMED: 92441304 Assessment/Plan: monitor bed monitor BP Echo cardiology evaluation siding scale diabetic diet titrate fio2 to sat of 92% Arthur Brenner MD Jan 02, 2020 11:17
[2020-01-02] MEDS: Heparin 25,000u/D5W 500ml 500 ML IV SCH ×2 (11:56→19:51)
[2020-01-02] MEDS: NovoLOG Insulin Flexpen SUBQ SCH ×3 (12:12→21:22)
--- NOTE | 2020-01-02 13:51 | NUR ---
CASE MANAGEMENT:REVIEW WALKED INTO ER CC: CHEST PAIN AND SOB PMH: ALLERGIC TO ASA SI: ACCELERATED HTN. NSTEMI 98.3 93 24 219/145 95% ON RA TROPONIN(+) 0.065 BNP+4662 IS: IV MORPHINE IV ZOFRAN NITRO 1" CHEST XRAY COVID SWAB : TO TELEMETRY PLAN: HEPARIN GTT
--- NOTE | 2020-01-02 15:29 | NUR ---
NURSE NOTES: Pt BP 160/116, Md Samson aware. Pt stated that he wanted to see design manager today and had plans to D/C or go AMA because "had to pay rent and do other things". After speaking to Chapin Pt stated plans to stay until tonight.
--- NOTE | 2020-01-02 15:45 | Cardiac Electrophysiology PN ---
Subjective Subjective [id number] Objective Last 24 Hour Vital Signs Date Time Temp Pulse Resp B/P (MAP) Pulse Ox O2 Delivery O2 Flow Rate FiO2 01/02/20 12:00 79 01/02/20 12:00 97.5 82 17 166/108 (127) 96 01/02/20 09:25 98.1 01/02/20 09:00 Room Air 01/02/20 08:46 78 176/114 01/02/20 08:00 98.1 78 19 176/114 (134) 98 01/02/20 08:00 86 01/02/20 06:23 Room Air 01/02/20 04:00 98.1 85 16 183/116 100 Room Air 01/02/20 04:00 97.7 80 20 172/115 (134) 98 01/02/20 04:00 84 01/02/20 03:13 89 204/136 01/02/20 02:55 98.2 100 16 219/145 100 Room Air 01/02/20 02:52 196/138 01/02/20 02:10 98.2 01/02/20 01:41 196/138 01/02/20 01:00 88 14 Room Air 01/02/20 01:00 98.2 88 14 196/138 100 Room Air 01/02/20 00:42 98.2 93 24 186/137 (153) 95 Room Air Intake and Output 01/01/20 01/02/20 19:00 07:00 Intake Total 200 ml Output Total 800 ml Balance -600 ml Intake Oral 200 ml Output Urine Total 800 ml # Voids 2 Laboratory Tests Test 01/02/20 01:15 01/02/20 09:40 01/02/20 12:00 01/02/20 15:00 White Blood Count 6.4 K/UL (4.8-10.8) 6.5 K/UL (4.8-10.8) Red Blood Count 5.62 M/UL (4.70-6.10) 5.78 M/UL (4.70-6.10) Hemoglobin 15.8 G/DL (14.2-18.0) 16.1 G/DL (14.2-18.0) Hematocrit 44.8 % (42.0-52.0) 46.4 % (42.0-52.0) Mean Corpuscular Volume 80 FL (80-99) 80 FL (80-99) Mean Corpuscular Hemoglobin 28.1 PG (27.0-31.0) 27.9 PG (27.0-31.0) Mean Corpuscular Hemoglobin Concent 35.4 G/DL (32.0-36.0) 34.8 G/DL (32.0-36.0) Red Cell Distribution Width 12.4 % (11.6-14.8) 12.5 % (11.6-14.8) Platelet Count 283 K/UL (150-450) 291 K/UL (150-450) Mean Platelet Volume 6.3 FL (6.5-10.1) L 6.1 FL (6.5-10.1) L Neutrophils (%) (Auto) 57.2 % (45.0-75.0) 66.6 % (45.0-75.0) Lymphocytes (%) (Auto) 29.8 % (20.0-45.0) 19.7 % (20.0-45.0) L Monocytes (%) (Auto) 7.6 % (1.0-10.0) 8.9 % (1.0-10.0) Eosinophils (%) (Auto) 1.3 % (0.0-3.0) 1.3 % (0.0-3.0) Basophils (%) (Auto) 4.0 % (0.0-2.0) H 3.5 % (0.0-2.0) H D-Dimer 0.90 mg/L FEU (0.00-0.49) H Sodium Level 134 MMOL/L (136-145) L 135 MMOL/L (136-145) L Potassium Level 4.1 MMOL/L (3.5-5.1) 3.8 MMOL/L (3.5-5.1) Chloride Level 101 MMOL/L (98-107) 99 MMOL/L (98-107) Carbon Dioxide Level 25 MMOL/L (21-32) 28 MMOL/L (21-32) Anion Gap 8 mmol/L (5-15) 8 mmol/L (5-15) Blood Urea Nitrogen 13 mg/dL (7-18) 11 mg/dL (7-18) Creatinine 1.3 MG/DL (0.55-1.30) 1.3 MG/DL (0.55-1.30) Estimat Glomerular Filtration Rate > 60 mL/min (>60) > 60 mL/min (>60) Glucose Level 185 MG/DL (74-106) H 222 MG/DL (74-106) H Calcium Level 9.1 MG/DL (8.5-10.1) 8.9 MG/DL (8.5-10.1) Total Bilirubin 1.6 MG/DL (0.2-1.0) H Direct Bilirubin 0.3 MG/DL (0.0-0.3) Aspartate Amino Transf (AST/SGOT) 17 U/L (15-37) Alanine Aminotransferase (ALT/SGPT) 24 U/L (12-78) Alkaline Phosphatase 59 U/L (46-116) Troponin I 0.065 ng/mL (0.000-0.056) Pending Pro-B-Type Natriuretic Peptide 4662 pg/mL (0-125) H Total Protein 6.3 G/DL (6.4-8.2) L Albumin 3.3 G/DL (3.4-5.0) L Globulin 3.0 g/dL Albumin/Globulin Ratio 1.1 (1.0-2.7) Lipase 61 U/L (73-393) L Activated Partial Thromboplast Time 28 SEC (23-33) 37 SEC (23-33) H Phosphorus Level 3.9 MG/DL (2.5-4.9) Magnesium Level 1.8 MG/DL (1.8-2.4) POC Whole Blood Glucose Pending Microbiology Date/Time Source Procedure Growth Status 01/02/20 01:20 Nasopharynx SARS-CoV-2 RdRp Gene Assay - Final Complete Moe Samson MD Jan 02, 2020 15:45
--- NOTE | 2020-01-02 16:20 | History & Physical ---
History and Physical History & Physicial Barrett Kim MD Jan 02, 2020 16:20
[2020-01-02] MEDS: Carvedilol 25mg Tab ORAL SCH ×2 (16:31→21:19)
--- NOTE | 2020-01-02 18:18 | Diagnostic Imaging Report ---
Indication: Chest pain Technique: One view of the chest Comparison: 12/29/2019 Findings: Heart is enlarged. Lungs pleural spaces are clear. No significant change Impression: Cardiomegaly. No acute process
--- NOTE | 2020-01-02 19:35 | NUR ---
NURSE NOTES: Received report from MICHELE Watts. Pt in bed, awake, alert, oriented x4, able to make needs known. No resp distress noted. laboratory immunologist in place. Pt on heparin drip, IV in place & patent on right AC. IV on left hand in place & patent saline locked. Bed in low position & locked, side rails up x2. Bed alarm on. Call light with in reach. Explained to pt use call light to ask for assistance before getting out of bed.
--- NOTE | 2020-01-02 19:59 | NUR ---
NURSE HAND-OFF REPORT: Important Events on Shift: Pt has plans to go AMA Patient Status: fc, stable Diet: cardiac diabetic diet reg texture Pending Orders: Pending Results/Labs: Pending MD notification: Latest Vital Signs: Temperature 98.2 , Pulse 87 , B/P 162 /113 , Respiratory Rate 18 , O2 SAT 98 , Room Air, O2 Flow Rate . Vital Sign Comment: MD aware of BP -- PRN to be given EKG Rhythm: Sinus Rhythm Rhythm change?: N MD Notified?: - MD Response: Latest Gaston Fall Score: 0 Fall Risk: Low Risk Safety Measures: Call light Within Reach, Bed Alarm Zone 2, Side Rails Side Rails x2, Bed position Low and Locked. Fall Precautions: Yellow Socks Yellow Gown Door Sign Patient Fall Education Report given to MICHELE Valdovinos.
[2020-01-02] MEDS ORDERED: Atorvastatin 20mg tab ORAL SCH (21:00)
--- NOTE | 2020-01-02 21:00 | Consultation ---
DATE OF CONSULTATION: 01/02/2020 CARDIOLOGY CONSULTATION CONSULTING PHYSICIAN: Moe Samson MD REASON FOR CONSULTATION: Chest pain, elevated troponin, and congestive heart failure. HISTORY OF PRESENT ILLNESS: Patient is a 34-year-old gentleman with history of hypertension, diabetes, and congestive heart failure with ejection fraction 35% in 2016 at [facility], who never had ischemia workup. Patient came to the emergency room complaining of chest pain and was found to have elevated troponin. Underwent an echocardiogram that showed ejection fraction of only 30%. Patient was admitted and a Cardiology consultation was obtained for further management. It is of note that patient has already been on beta beny and diuretic over last few years. REVIEW OF SYSTEMS: Negative other than what was mentioned in the history of present illness. PAST MEDICAL HISTORY: As mentioned above. FAMILY HISTORY: Noncontributory. SOCIAL HISTORY: He denies smoking or drinking alcohol or using any drugs. MEDICATIONS: Per reconciliation include hydrochlorothiazide 25 daily, labetalol 100 mg b.i.d., metformin, , and Zantac. PHYSICAL EXAMINATION: VITAL SIGNS: Show blood pressure of 166/108, pulse 79, respirations 16, and temperature 97.5. HEAD AND NECK: Showed no JVD. LUNGS: Clear. CARDIOVASCULAR: Shows regular S1 and S2 with no gallop or murmur. ABDOMEN: Soft. EXTREMITIES: 1+ pitting edema. LABORATORY AND DIAGNOSTIC DATA: Labs show white count of 6.5, hematocrit of 16.1, hematocrit of 46, and platelet count is 291. Sodium 135, potassium 3.8, BUN of 11, creatinine 1.3, glucose of 222. Troponin is 0.065. ASSESSMENT AND PLAN: 1. Non-ST elevation myocardial infarction with elevated troponin 0.065 and chest pain and ejection fraction of 30%. Patient does not have renal failure. His chest CT showed no evidence of pulmonary embolism. His EKG showed sinus rhythm with nonspecific T-wave abnormalities. Patient would need cardiac catheterization for further evaluation of his coronaries in view of elevated troponin, chest pain, abnormal EKG, and also to rule out ischemic cardiomyopathy in view of EF of 30%, cardiac catheterization done. In the meantime, continue the patient on aspirin and change the labetalol to Coreg and add Lipitor to his medical regimen. 2. Severe cardiomyopathy. EF of 30%. This has been going on since 2016 and has been already on medical therapy. Cardiac catheterization showed no significant coronary artery disease. He will need prophylactic defibrillator implantation. 3. Hypertension. We will maximize his heart failure therapy with Coreg, lisinopril, Lasix, and Aldactone. 4. Diabetes. 5. Diabetic retinopathy. Thank you very much Dr. Kim for allowing me to participate in the care of this patient. Please do not hesitate to contact me for any questions regarding my evaluation. Case was discussed with Dr. Kim and the nurse at the bedside. Moe Samson M.D. DR: YVON JOB#: [id number] CC:
--- NOTE | 2020-01-02 22:45 | History and Physical Report ---
DATE OF ADMISSION: 01/02/2020 CHIEF COMPLAINT: Chest pain. HISTORY OF PRESENT ILLNESS: This is a 34-year-old very delightful gentleman with past medical history significant for congestive heart failure with depressed ejection fraction of 35% on the last echocardiogram in 2016, accelerated hypertension, diabetes type 2 with diabetic retinopathy, who presented to the emergency department complaining about substernal chest pain, which started around 7 p.m., intermittent, nonradiating, associated with shortness of breath without vomiting. The patient shortly after initial evaluation in the emergency department noted to have elevated troponin of 0.065 and subsequently, the patient was admitted to the hospital with chest pain possible [id number] VT. PAST MEDICAL HISTORY/PAST SURGICAL HISTORY: As above. History of hypertension, diabetes type 2, ischemic cardiomyopathy, congestive heart failure with a reduced ejection fraction, noncompliance with medication, and diabetic retinopathy. MEDICATIONS AT HOME: Please refer to medication reconciliation. ALLERGIES: Aspirin. SOCIAL HISTORY: Denies any smoking, however, he smoke marijuana. Denies any alcohol or substance abuse. 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 FAMILY HISTORY: Father has a strong history of coronary disease, with myocardial infarction and both sides of the family has a history of high blood pressure and diabetes. REVIEW OF SYSTEMS: Mostly as above. Denies any dysuria, frequency, or hematuria. Complained about shortness of breath and chest pain. Denies any hemoptysis or hematochezia. Denies any bright red blood per rectum. Complained about pedal edema. Denies any loss of consciousness. Denies any fall or head trauma. Denies any bright red blood per rectum. PHYSICAL EXAMINATION: VITAL SIGNS: On admission, temperature 98.2, pulse of 93, respirations 24, and blood pressure 186/137. GENERAL: The patient is awake and responsive, in no acute distress. HEAD AND NECK: Pupils are reactive to light. Extraocular movements intact. The patient's eyes had strabismus. Neck was supple. No JVD. LUNGS: Good air entry. No wheezing or rales. Decreased air in the bases. HEART: S1, S2. Regular rate and rhythm. Distant heart sounds. ABDOMEN: Soft, nondistended, nontender. Positive bowel sounds. Morbidly obese. EXTREMITIES: No cyanosis, clubbing, or edema. NEUROLOGIC: Cranial nerves II through XII are grossly intact. Motor is 5/5 in all extremities. Gait was not assessed due to the patient's status. RECTAL AND GENITOURINARY: Refused and deferred. PSYCHIATRIC: Mood and affect is intact. LABORATORY DATA: On admission from the emergency department, sodium 134, potassium 4.1, chloride 101, bicarb 25, BUN 13, creatinine 1.3, and glucose is 185. Total bilirubin is 1.6. Calcium is 9.1. Alkaline phosphatase is 59. First troponin is 0.065. Total protein is 6.3. Albumin is 3.3. ProBNP is 4662. Lipase is 61. D-dimer is 0.90. WBC of 6.4, hemoglobin 15, hematocrit 44, and platelets is 283,000. The patient had a chest x-ray, no acute cardiopulmonary disease cardiomegaly. CT angio of the chest and thorax, no evidence of PE, coronary artery atherosclerosis. ASSESSMENT: 1. Chest pain most likely secondary to the [id number] VT. 2. History of ischemic cardiomyopathy with reduced ejection fraction with systolic dysfunction. 3. Congestive heart failure, acute on chronic with reduced ejection fraction. 4. Morbid obesity. 5. Presumed obstructive sleep apnea. 6. Diabetes type 2 with diabetic retinopathy. 7. Hypertensive emergency. 8. Noncompliance with medication. PLAN: Admit the patient to monitored unit. Discussed case with Dr. Brenner from Pulmonary Critical Care and Dr. Samson from Cardiology. Discussed with the patient extensively regarding the plan of care. We will start the patient on heparin drip. Monitor serial cardiac enzymes. Code status is Full code. Follow up with the echocardiogram and consider transfer to [facility] for higher level of care for cardiac catheterization and possibly follow by ICD placement if need to. Barrett Kim M.D. DR: VALERIA JOB#: [id number] CC:
[2020-01-03] VITALS: BP 150/90
[2020-01-03 02:53] LABS: INR 1.2 (0.9-1.1)
[2020-01-03] MEDS ORDERED: Heparin 5000 units/ml inj IV SCH (03:15)
[2020-01-03] MEDS: Heparin 25,000u/D5W 500ml 500 ML IV SCH ×2 (03:24→08:33)
[2020-01-03 04:00] VITALS: BP 149/97
[2020-01-03] MEDS: NovoLOG Insulin Flexpen SUBQ SCH ×2 (06:13→11:44)
--- NOTE | 2020-01-03 07:00 | NUR ---
NURSE NOTES: [address] Samson made aware of results.
[2020-01-03 07:24] LABS: BASOPHILS % (AUTO) 4.6 % (0.0-2.0); EOSINOPHILS % (AUTO) 1.9 % (0.0-3.0); HEMATOCRIT 43.2 % (42.0-52.0); HEMOGLOBIN 15.4 G/DL (14.2-18.0); LYMPHOCYTES % (AUTO) 22.8 % (20.0-45.0); MEAN CORPUSCULAR VOLUME 79 FL (80-99); MONOCYTES % (AUTO) 11.5 % (1.0-10.0); NEUTROPHILS % (AUTO) 59.2 % (45.0-75.0); PLATELET COUNT 278 K/UL (150-450); RED BLOOD COUNT 5.49 M/UL (4.70-6.10); RED CELL DISTRIBUTION WIDTH 12.1 % (11.6-14.8); WHITE BLOOD COUNT 7.3 K/UL (4.8-10.8)
[2020-01-03 07:44] LABS: CHOLESTEROL 241 MG/DL (< 200); HDL CHOLESTEROL 33 MG/DL (40-60); TRIGLYCERIDES 94 MG/DL (30-150)
--- NOTE | 2020-01-03 07:48 | NUR ---
NURSE HAND-OFF REPORT: Important Events on Shift:pt on heparin drip, rate adjusted at 0315am and bolus given. Patient Status: stable Diet: cardiac Pending Orders: [] Pending Results/Labs:[] Pending MD notification:[] Latest Vital Signs: Temperature 98.0 , Pulse 78 , B/P 149 /97 , Respiratory Rate 18 , O2 SAT 96 , Room Air, O2 Flow Rate . Vital Sign Comment: [] EKG Rhythm: Sinus Rhythm Rhythm change?: N MD Notified?: - MD Response: Latest Gaston Fall Score: 0 Fall Risk: Low Risk Safety Measures: Call light Within Reach, Bed Alarm Zone 2, Side Rails Side Rails x2, Bed position Low and Locked. Fall Precautions: Yellow Socks Yellow Gown Door Sign Patient Fall Education Report given to MICHELE Pack.
--- NOTE | 2020-01-03 07:50 | NUR ---
NURSE NOTES: Received report from MICHELE Valdovinos. Pt A/O x4. Pt sitting up on bed. No s/s of acute distress. On room air. Heparin drip running on right AC. Pending transfer to [facility]. Bed in low position, side rails up x2 and call light within reach. Will continue to monitor.
[2020-01-03 08:00] VITALS: BP 157/103
[2020-01-03] MEDS: Carvedilol 25mg Tab ORAL SCH (08:32)
[2020-01-03] MEDS ORDERED: Lisinopril 10mg tab ORAL SCH (09:00)
[2020-01-03] MEDS ORDERED: Spironolactone 25mg tab ORAL SCH (09:00)
[2020-01-03] MEDS ORDERED: HydrALAZINE 25mg tab ORAL PRN (10:30)
--- NOTE | 2020-01-03 10:56 | NUR ---
NURSE NOTES: Received a call from pharmacy [facility]. PTT is 91 and current heparin drip rate remains the same. Will order PTT for 01/04/20 @ 0400.
--- NOTE | 2020-01-03 11:33 | Internal Med Progress Note ---
Subjective Date of Service: Jan 03, 2020 Physician Name Alessio Brown Attending Physician Barrett Kim MD Current Medications Medications (Trade) Dose Ordered Sig/Zeferino Route PRN Reason Start Time Stop Time Status Last Admin Dose Admin Acetaminophen (Tylenol) 650 mg Q4H PRN ORAL FEVER 01/02/20 07:15 02/01/20 07:14 01/02/20 08:55 Acetaminophen (Tylenol) 650 mg Q6H PRN ORAL For Headache 01/02/20 22:15 02/01/20 22:14 Albuterol/ Ipratropium (Albuterol/ Ipratropium) 3 ml Q4H PRN HHN Shortness of Breath 01/02/20 07:15 01/07/20 07:14 Atorvastatin Calcium (Lipitor) 20 mg BEDTIME ORAL 01/02/20 21:00 04/01/20 20:59 01/02/20 21:19 Carvedilol (Coreg) 25 mg EVERY 12 HOURS ORAL 01/02/20 15:45 02/01/20 15:44 01/03/20 08:32 Dextrose (Dextrose 50%) 25 ml Q30M PRN IV Hypoglycemia 01/02/20 07:15 04/01/20 07:14 Dextrose (Dextrose 50%) 50 ml Q30M PRN IV Hypoglycemia 01/02/20 07:15 04/01/20 07:14 Diltiazem HCl (Cardizem) 10 mg Q1H PRN IV heart rate more than 120, 01/02/20 07:15 02/01/20 07:14 Enalaprilat (Vasotec) 2.5 mg Q6H PRN IV sbp more than 160 01/02/20 07:15 02/01/20 07:14 Furosemide (Lasix) 40 mg EVERY 12 HOURS IV 01/02/20 21:00 02/01/20 20:59 01/03/20 08:31 Heparin Sodium/ Dextrose 500 ml @ 38.08 mls/ hr ADJUST PER PROTOCOL IV 01/03/20 03:15 02/02/20 03:14 01/03/20 08:33 Hydralazine HCl (Apresoline) 50 mg Q6H PRN ORAL BP>160 01/03/20 10:30 04/01/20 07:14 Insulin Aspart (NovoLOG) BEFORE MEALS AND HS SUBQ 01/02/20 11:30 04/01/20 11:29 01/03/20 06:13 Lisinopril (ZestriL) 10 mg DAILY ORAL 01/03/20 09:00 02/02/20 08:59 01/03/20 08:31 Nitroglycerin (Ntg) 0.4 mg Q5M PRN SL Prn Chest Pain 01/02/20 07:15 02/01/20 07:14 Ondansetron HCl (Zofran) 4 mg Q6H PRN IVP Nausea & Vomiting 01/02/20 07:15 02/01/20 07:14 Pantoprazole (Protonix) 40 mg DAILY ORAL 01/02/20 09:00 02/01/20 08:59 01/03/20 08:31 Polyethylene Glycol (Miralax) 17 gm DAILYPRN PRN ORAL Constipation 01/02/20 07:15 02/01/20 07:14 Spironolactone (Aldactone) 25 mg DAILY ORAL 01/03/20 09:00 02/02/20 08:59 01/03/20 08:31 Temazepam (Restoril) 15 mg HSPRN PRN ORAL Insomnia 01/02/20 07:15 01/09/20 07:14 Allergies: Coded Allergies: ASPIRIN (Verified Adverse Reaction, Intermediate, Swelling of eyes/detatched retina, 01/02/20) Pt self reported ROS Limited/Unobtainable: No Constitutional: Reports: no symptoms HEENT: Reports: no symptoms Cardiovascular: Reports: chest pain Respiratory: Reports: shortness of breath Gastrointestinal/Abdominal: Reports: no symptoms Genitourinary: Reports: no symptoms Neurologic/Psychiatric: Reports: no symptoms Subjective 34 YO M with history of cardiomyopathy and congestive heart failure admitted with chest pain. Now elevated troponin. Cover for Int Faustino-Dr Kim Objective Last Vital Signs Date Time Temp Pulse Resp B/P (MAP) Pulse Ox O2 Delivery O2 Flow Rate FiO2 01/03/20 09:00 Room Air 01/03/20 08:32 80 157/103 01/03/20 08:00 97.5 20 98 General Appearance: WD/WN, no apparent distress, alert, obese EENT: PERRL/EOMI, normal ENT inspection Neck: non-tender, normal alignment, supple, normal inspection Cardiovascular: normal peripheral pulses, normal rate, regular rhythm, no gallop/murmur, no JVD Respiratory/Chest: chest wall non-tender, no respiratory distress, no accessory muscle use, crackles/rales Abdomen: normal bowel sounds, non tender, soft, no organomegaly, no mass Extremities: normal range of motion, non-tender Edema: trace edema 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, no motor/sensory deficits Skin: normal pigmentation, warm/dry Laboratory Tests Test 01/02/20 12:00 01/02/20 15:00 01/02/20 16:30 01/02/20 18:00 POC Whole Blood Glucose Pending 177 MG/DL (74-106) H Activated Partial Thromboplast Time 37 SEC (23-33) H 29 SEC (23-33) Troponin I 0.044 ng/mL (0.000-0.056) Test 01/02/20 21:18 01/02/20 22:45 01/03/20 02:30 01/03/20 06:06 POC Whole Blood Glucose 186 MG/DL (74-106) H 200 MG/DL (74-106) H Troponin I 0.041 ng/mL (0.000-0.056) Prothrombin Time 12.8 SEC (9.30-11.50) H Prothromb Time International Ratio 1.2 (0.9-1.1) H Activated Partial Thromboplast Time 50 SEC (23-33) H Test 01/03/20 07:00 01/03/20 09:45 White Blood Count 7.3 K/UL (4.8-10.8) Red Blood Count 5.49 M/UL (4.70-6.10) Hemoglobin 15.4 G/DL (14.2-18.0) Hematocrit 43.2 % (42.0-52.0) Mean Corpuscular Volume 79 FL (80-99) L Mean Corpuscular Hemoglobin 28.1 PG (27.0-31.0) Mean Corpuscular Hemoglobin Concent 35.8 G/DL (32.0-36.0) Red Cell Distribution Width 12.1 % (11.6-14.8) Platelet Count 278 K/UL (150-450) Mean Platelet Volume 5.8 FL (6.5-10.1) L Neutrophils (%) (Auto) 59.2 % (45.0-75.0) Lymphocytes (%) (Auto) 22.8 % (20.0-45.0) Monocytes (%) (Auto) 11.5 % (1.0-10.0) H Eosinophils (%) (Auto) 1.9 % (0.0-3.0) Basophils (%) (Auto) 4.6 % (0.0-2.0) H Troponin I 0.043 ng/mL (0.000-0.056) C-Reactive Protein, Quantitative 0.7 mg/dL (0.00-0.90) Pro-B-Type Natriuretic Peptide 2694 pg/mL (0-125) H Triglycerides Level 94 MG/DL (30-150) Cholesterol Level 241 MG/DL (< 200) H LDL Cholesterol 192 mg/dL (<100) H HDL Cholesterol 33 MG/DL (40-60) L Cholesterol/HDL Ratio 7.3 (3.3-4.4) H Thyroid Stimulating Hormone (TSH) 1.615 uiU/mL (0.358-3.740) Activated Partial Thromboplast Time 91 SEC (23-33) H Microbiology Date/Time Source Procedure Growth Status 01/02/20 01:20 Nasopharynx SARS-CoV-2 RdRp Gene Assay - Final Complete Intake and Output 01/02/20 01/03/20 19:00 07:00 Intake Total 800 ml 400 ml Output Total 1800 ml Balance 800 ml -1400 ml Intake Oral 400 ml Other 800 ml Output Urine Total 1800 ml Assessment/Plan Assessment/Plan ASSESSMENT: 1. Chest pain most likely secondary to the [id number] DC. 2. History of ischemic cardiomyopathy with reduced ejection fraction with systolic dysfunction. 3. Congestive heart failure, acute on chronic with ejection fraction=30%. (BNP =2900) 4. Morbid obesity. 5. Presumed obstructive sleep apnea. 6. Diabetes type 2 with diabetic retinopathy. 7. Hypertensive emergency. 8. Noncompliance with medication. PLAN: 1. Admit the patient to monitored unit. 2. Dr. Brenner = Pulmonary Critical Care 3. Dr. Samson = Cardiology. 4. Continue heparin drip. 5. Monitor serial cardiac enzymes. 6. Code status is Full code. 7. Await echocardiogram results. 8. consider transfer to [facility] for higher level of care for cardiac catheterization and possibly follow by ICD placement-see cardiology note Alessio Brown MD Jan 03, 2020 11:33
[2020-01-03 12:00] VITALS: BP 139/93
--- NOTE | 2020-01-03 14:59 | Pulmonology Progress Note ---
Subjective ROS Limited/Unobtainable: Yes Constitutional: Reports: no symptoms HEENT: Repors: no symptoms Allergies: Coded Allergies: ASPIRIN (Verified Adverse Reaction, Intermediate, Swelling of eyes/detatched retina, 01/02/20) Pt self reported Objective Last 24 Hour Vital Signs Date Time Temp Pulse Resp B/P (MAP) Pulse Ox O2 Delivery O2 Flow Rate FiO2 01/03/20 12:00 72 01/03/20 12:00 96.4 84 18 139/93 (108) 99 01/03/20 09:00 Room Air 01/03/20 08:32 80 157/103 01/03/20 08:31 157/103 01/03/20 08:00 97.5 80 20 157/103 (121) 98 01/03/20 08:00 77 01/03/20 04:00 98.0 78 18 149/97 (114) 96 01/03/20 04:00 73 01/03/20 00:00 74 01/03/20 00:00 98.5 88 20 150/90 (110) 97 01/02/20 21:19 88 158/95 01/02/20 21:00 Room Air 01/02/20 20:00 80 01/02/20 20:00 98.1 94 20 158/95 (116) 98 01/02/20 16:31 87 162/113 01/02/20 15:50 98.2 87 18 162/113 (129) 98 01/02/20 15:49 92 Intake and Output 01/02/20 01/03/20 19:00 07:00 Intake Total 800 ml 400 ml Output Total 1800 ml Balance 800 ml -1400 ml Intake Oral 400 ml Other 800 ml Output Urine Total 1800 ml General Appearance: WD/WN HEENT: normocephalic, atraumatic Respiratory: chest wall non-tender, lungs clear Cardiovascular: normal peripheral pulses, regular rhythm Abdomen: normal bowel sounds, soft, non tender Extremities: no cyanosis Skin: no rash Neurologic: grommet worker II-XII grossly normal Microbiology Date/Time Source Procedure Growth Status 01/02/20 01:20 Nasopharynx SARS-CoV-2 RdRp Gene Assay - Final Complete Laboratory Tests 01/02/20 15:00: Activated Partial Thromboplast Time 37H, Troponin I 0.044 01/02/20 16:30: POC Whole Blood Glucose 177H 01/02/20 18:00: Activated Partial Thromboplast Time 29 01/02/20 21:18: POC Whole Blood Glucose 186H 01/02/20 22:45: Troponin I 0.041 01/03/20 02:30: Prothrombin Time 12.8H, Prothromb Time International Ratio 1.2H, Activated Partial Thromboplast Time 50H 01/03/20 06:06: POC Whole Blood Glucose 200H 01/03/20 07:00: Troponin I 0.043, White Blood Count 7.3, Red Blood Count 5.49, Hemoglobin 15.4, Hematocrit 43.2, Mean Corpuscular Volume 79L, Mean Corpuscular Hemoglobin 28.1, Mean Corpuscular Hemoglobin Concent 35.8, Red Cell Distribution Width 12.1, Platelet Count 278, Mean Platelet Volume 5.8L, Neutrophils (%) (Auto) 59.2, Lymphocytes (%) (Auto) 22.8, Monocytes (%) (Auto) 11.5H, Eosinophils (%) (Auto) 1.9, Basophils (%) (Auto) 4.6H, C-Reactive Protein, Quantitative 0.7, Pro-B-Type Natriuretic Peptide 2694H, Triglycerides Level 94, Cholesterol Level 241H, LDL Cholesterol 192H, HDL Cholesterol 33L, Cholesterol/HDL Ratio 7.3H, Thyroid Stimulating Hormone (TSH) 1.615 01/03/20 09:45: Activated Partial Thromboplast Time 91H Current Medications Medications (Trade) Dose Ordered Sig/Zeferino Route PRN Reason Start Time Stop Time Status Last Admin Dose Admin Acetaminophen (Tylenol) 650 mg Q4H PRN ORAL FEVER 01/02/20 07:15 02/01/20 07:14 01/02/20 08:55 Acetaminophen (Tylenol) 650 mg Q6H PRN ORAL For Headache 01/02/20 22:15 02/01/20 22:14 Albuterol/ Ipratropium (Albuterol/ Ipratropium) 3 ml Q4H PRN HHN Shortness of Breath 01/02/20 07:15 01/07/20 07:14 Atorvastatin Calcium (Lipitor) 20 mg BEDTIME ORAL 01/02/20 21:00 04/01/20 20:59 01/02/20 21:19 Carvedilol (Coreg) 25 mg EVERY 12 HOURS ORAL 01/02/20 15:45 02/01/20 15:44 01/03/20 08:32 Dextrose (Dextrose 50%) 25 ml Q30M PRN IV Hypoglycemia 01/02/20 07:15 04/01/20 07:14 Dextrose (Dextrose 50%) 50 ml Q30M PRN IV Hypoglycemia 01/02/20 07:15 04/01/20 07:14 Diltiazem HCl (Cardizem) 10 mg Q1H PRN IV heart rate more than 120, 01/02/20 07:15 02/01/20 07:14 Enalaprilat (Vasotec) 2.5 mg Q6H PRN IV sbp more than 160 01/02/20 07:15 02/01/20 07:14 Furosemide (Lasix) 40 mg EVERY 12 HOURS IV 01/02/20 21:00 02/01/20 20:59 01/03/20 08:31 Heparin Sodium/ Dextrose 500 ml @ 38.08 mls/ hr ADJUST PER PROTOCOL IV 01/03/20 03:15 02/02/20 03:14 01/03/20 08:33 Hydralazine HCl (Apresoline) 50 mg Q6H PRN ORAL BP>160 01/03/20 10:30 04/01/20 07:14 Insulin Aspart (NovoLOG) BEFORE MEALS AND HS SUBQ 01/02/20 11:30 04/01/20 11:29 01/03/20 11:44 Lisinopril (ZestriL) 10 mg DAILY ORAL 01/03/20 09:00 02/02/20 08:59 01/03/20 08:31 Nitroglycerin (Ntg) 0.4 mg Q5M PRN SL Prn Chest Pain 01/02/20 07:15 02/01/20 07:14 Ondansetron HCl (Zofran) 4 mg Q6H PRN IVP Nausea & Vomiting 01/02/20 07:15 02/01/20 07:14 Pantoprazole (Protonix) 40 mg DAILY ORAL 01/02/20 09:00 02/01/20 08:59 01/03/20 08:31 Polyethylene Glycol (Miralax) 17 gm DAILYPRN PRN ORAL Constipation 01/02/20 07:15 02/01/20 07:14 Spironolactone (Aldactone) 25 mg DAILY ORAL 01/03/20 09:00 02/02/20 08:59 01/03/20 08:31 Temazepam (Restoril) 15 mg HSPRN PRN ORAL Insomnia 01/02/20 07:15 01/09/20 07:14 Assessment/Plan Problems: (1) NSTEMI (non-ST elevated myocardial infarction) (2) Hypertensive emergency (3) CHF (congestive heart failure) (4) Noncompliance with medication regimen (5) Cardiomyopathy (6) Diabetes mellitus Assessment/Plan no more chest pain monitor bed monitor BP Echo cardiology evaluation siding scale diabetic diet titrate fio2 to sat of 92% Arthur Brenner MD Jan 03, 2020 14:59
--- NOTE | 2020-01-03 15:00 | NUR ---
Received a call from [facility] stating they have bed for pt has a bed room 1463. They said to call and give report to nurse at [phone].
--- NOTE | 2020-01-03 15:45 | NUR ---
NURSE NOTES: Called [facility] and gave report to MICHELE Bonilla. Also spoke with Dr. Kim and got discharge order, and to d/c heparin drip. Called [facility] for [facility]S transfer.
[2020-01-03] MEDS ORDERED: HydrALAZINE 50mg tab ORAL PRN (16:15)
--- NOTE | 2020-01-03 16:34 | Cardiac Electrophysiology PN ---
Assessment/Plan Assessment/Plan 1. Elevated troponin 0.065 and chest pain and ejection fraction of 30%. 4 follow up troponins are negative. Patient does not have renal failure. His chest CT showed no evidence of pulmonary embolism. His EKG showed sinus rhythm with nonspecific T-wave abnormalities. Will transfer to [facility] for cardiac catheterization to rule out ischemic cardiomyopathy in view of EF of 30% Continue aspirin, Coreg and Lipitor 2. Severe cardiomyopathy. EF of 30%. This has been going on since 2016 and has been already on medical therapy. If Cardiac catheterization shows no significant coronary artery disease, will need prophylactic defibrillator implantation. 3. Hypertension. We will maximize his heart failure therapy with Coreg, lisinopril, Lasix, and Aldactone. 4. Diabetes. 5. Diabetic retinopathy. KEARA BAUTISTA and Dr Kim. Going to [facility] today Subjective Subjective Consented for cardiac cath and ICD and is going to [facility] room [facility]. No CP Objective Last 24 Hour Vital Signs Date Time Temp Pulse Resp B/P (MAP) Pulse Ox O2 Delivery O2 Flow Rate FiO2 01/03/20 12:00 72 01/03/20 12:00 96.4 84 18 139/93 (108) 99 01/03/20 09:00 Room Air 01/03/20 08:32 80 157/103 01/03/20 08:31 157/103 01/03/20 08:00 97.5 80 20 157/103 (121) 98 01/03/20 08:00 77 01/03/20 04:00 98.0 78 18 149/97 (114) 96 01/03/20 04:00 73 01/03/20 00:00 74 01/03/20 00:00 98.5 88 20 150/90 (110) 97 01/02/20 21:19 88 158/95 01/02/20 21:00 Room Air 01/02/20 20:00 80 01/02/20 20:00 98.1 94 20 158/95 (116) 98 Intake and Output 01/02/20 01/03/20 19:00 07:00 Intake Total 800 ml 400 ml Output Total 1800 ml Balance 800 ml -1400 ml Intake Oral 400 ml Other 800 ml Output Urine Total 1800 ml Laboratory Tests Test 01/02/20 18:00 01/02/20 21:18 01/02/20 22:45 01/03/20 02:30 Activated Partial Thromboplast Time 29 SEC (23-33) 50 SEC (23-33) H POC Whole Blood Glucose 186 MG/DL (74-106) H Troponin I 0.041 ng/mL (0.000-0.056) Prothrombin Time 12.8 SEC (9.30-11.50) H Prothromb Time International Ratio 1.2 (0.9-1.1) H Test 01/03/20 06:06 01/03/20 07:00 01/03/20 09:45 01/03/20 15:15 POC Whole Blood Glucose 200 MG/DL (74-106) H White Blood Count 7.3 K/UL (4.8-10.8) Red Blood Count 5.49 M/UL (4.70-6.10) Hemoglobin 15.4 G/DL (14.2-18.0) Hematocrit 43.2 % (42.0-52.0) Mean Corpuscular Volume 79 FL (80-99) L Mean Corpuscular Hemoglobin 28.1 PG (27.0-31.0) Mean Corpuscular Hemoglobin Concent 35.8 G/DL (32.0-36.0) Red Cell Distribution Width 12.1 % (11.6-14.8) Platelet Count 278 K/UL (150-450) Mean Platelet Volume 5.8 FL (6.5-10.1) L Neutrophils (%) (Auto) 59.2 % (45.0-75.0) Lymphocytes (%) (Auto) 22.8 % (20.0-45.0) Monocytes (%) (Auto) 11.5 % (1.0-10.0) H Eosinophils (%) (Auto) 1.9 % (0.0-3.0) Basophils (%) (Auto) 4.6 % (0.0-2.0) H Troponin I 0.043 ng/mL (0.000-0.056) 0.029 ng/mL (0.000-0.056) C-Reactive Protein, Quantitative 0.7 mg/dL (0.00-0.90) Pro-B-Type Natriuretic Peptide 2694 pg/mL (0-125) H Triglycerides Level 94 MG/DL (30-150) Cholesterol Level 241 MG/DL (< 200) H LDL Cholesterol 192 mg/dL (<100) H HDL Cholesterol 33 MG/DL (40-60) L Cholesterol/HDL Ratio 7.3 (3.3-4.4) H Thyroid Stimulating Hormone (TSH) 1.615 uiU/mL (0.358-3.740) Activated Partial Thromboplast Time 91 SEC (23-33) H Microbiology Date/Time Source Procedure Growth Status 01/02/20 01:20 Nasopharynx SARS-CoV-2 RdRp Gene Assay - Final Complete Objective HEAD AND NECK: Mild JVD. LUNGS: Clear. CARDIOVASCULAR: Shows regular S1 and S2 with no gallop or murmur. ABDOMEN: Soft. EXTREMITIES: 1+ pitting edema. Moe Samson MD Jan 03, 2020 16:34
--- NOTE | 2020-01-03 16:43 | NUR ---
NURSE NOTES: Pt was picked up by [facility]. Gave report to ACLS nurse. Vitals stable. Removed telemetry box.
--- NOTE | 2020-01-05 12:26 | Discharge Summary ---
Discharge Summary Discharge Summary _ DATE OF ADMISSION: 01/02/2020 DATE OF DISCHARGE: 01/03/2020 DISCHARGED BY: Dr. Kim REASON FOR ADMISSION: 34 years old male with past medical history significant for congestive heart failure with reduced ejection fraction of 35% on the last echocardiogram in 2016, hypertension, diabetes mellitus type 2 with diabetic retinopathy, presented with chest pain started at the evening. Pain reported as intermittent, nonradiating, associated with shortness of breath. EKG revealed sinus rhythm , no acute ischemic changes. Chest x-ray demonstrated cardiomegaly no acute process otherwise. CTA of the chest revealed no evidence of pulmonary embolism. Troponin elevated 0.065, pro BNP 4662. In emergency department patient received diuretic , analgesic, nitroglycerin paste and admitted for further management. CONSULTANTS: call center operator Dr. Hubbard pulmonary /critical care Dr. Brenner [facility]SE: Patient admitted to telemetry floor. Serial troponin were monitored. The next four troponin already down to normal. Echocardiogram demonstrated ejection fraction of 30% with global left ermelinda tricular hypokinesis. Grade 3 elevated left atrial pressure . Patient was on diuresis. Volumes were closely monitored. Guideline directed medical therapy for congestive heart failure was maximized. Antihypertensive regimen was optimized . Blood pressure stabilized. Patient was continued on antiplatelet therapy with aspirin and statin. Beta-blockade provided. DVT and GI prophylaxis provided. Supplemental oxygen provided and titrated to keep pulse oximetry above 92% . Pulse oximetry remained stable on room air. Aircraft Armorer recommended to transfer patient to a higher level of care for cardiac catheterization to rule out ischemic cardiomyopathy in view of ejection fraction 30%. Patient was stable for transfer via [facility]S ambulance to [facility] for cardiac catheterization . FINAL DIAGNOSES: Elevated troponin Possible NSTEMI Severe cardiomyopathy, probably ischemic with ejection fraction 30% Acute on chronic congestive heart failure Hypertension with initial hypertensive urgency Diabetes Diabetic retinopathy Morbid obesity Presumed obstructive sleep apnea DISCHARGE MEDICATIONS: See Medication Reconciliation list. DISCHARGE INSTRUCTIONS: Patient was transferred to [facility] for cardiac catheterization via [facility]S ambulance . I have been assigned to dictate discharge summary for this account. I was not involved in the patient's management. Laurie Aguirre NP Jan 05, 2020 12:26
--- NOTE | 2020-01-06 16:11 | Cardiology Report ---
APPROVED REPORT EXAM: Two-dimensional and M-mode echocardiogram with Doppler and color Doppler. INDICATION Left ventricular function M-Mode DIMENSIONS IVSd1.1 (0.7-1.1cm)Left Atrium (MM)4.6 (1.6-4.0cm) LVDd5.0 (3.5-5.6cm)Aortic Root3.1 (2.0-3.7cm) PWd1.5 (0.7-1.1cm)Aortic Cusp Exc.1.5 (1.5-2.0cm) IVSs1.1 cmEPSS1.2 (>1.0cm) LVDs4.2 (2.5-4.0cm) PWs1.8 cm <Conclusion> Global left ventricular hypokinesis. Normal left ventricular chamber size. Left ventricular ejection fraction estimated to be 25-30 %. Mild left ventricular hypertrophy. No evidence of pericardial effusion. Mild left atrial enlargement. Right cardiac chamber sizes are within normal limits. Mild focal aortic valve sclerosis with adequate cusp excursion. Mildly thickened mitral valve leaflets with normal excursion. Mild mitral annulus and aortic root calcification. Pulmonic valve not well visualized. Normal tricuspid valve structure. IVC is normal in size without physiological collapse. A color flow and spectral Doppler study was performed and revealed: Trace aortic regurgitation. Mild mitral regurgitation. Mitral inflow indicates increased left atrial pressure, suggestive restrictive pattern (Grade III). Trace tricuspid regurgitation. Tricuspid systolic velocities suggests peak right ventricular systolic pressure of 19 mmHg. Trace pulmonic regurgitation present.
--- NOTE | 2020-01-06 17:11 | Cardiology Report ---
APPROVED REPORT EKG Measurement Heart [id number] <Conclusion> Normal sinus rhythm T wave abnormality, consider anterolateral ischemia Prolonged QT Abnormal ECG
--- NOTE | 2020-01-06 17:12 | Cardiology Report ---
APPROVED REPORT EKG Measurement Heart [id number] <Conclusion> Normal sinus rhythm Possible Left atrial enlargement Nonspecific T wave abnormality Prolonged QT Abnormal ECG
== END 2020-01-03 16:33 | disposition other institution, planned readmission (95) | DRG 280 ==
LOC: EMR 01:13 → 2E 01:52 → EDBEDREQ 03:23
DX: I21.4 Non-ST elevation (NSTEMI) myocardial infarction (principal); I50.23 Acute on chronic systolic (congestive) heart failure; I11.0 Hypertensive heart disease with heart failure; E11.311 Type 2 diabetes mellitus with unspecified diabetic retinopathy with macular edema; I25.5 Ischemic cardiomyopathy; E66.01 Morbid (severe) obesity due to excess calories; I16.0 Hypertensive urgency; G47.33 Obstructive sleep apnea (adult) (pediatric); Z68.36 Body mass index [BMI] 36.0-36.9, adult; I25.10 Atherosclerotic heart disease of native coronary artery without angina pectoris; Z91.14 Patient's other noncompliance with medication regimen; Z82.41 Family history of sudden cardiac death
CPT/HCPCS: 36415; 71045; 71275; 80048; 80053; 80061; 82248; 82962; 83690; 83735; 83880; 84100; 84443; 84484; 85025; 85379; 85610; 85730; 86140; 93005; 93306; 96374; 96375; 99291; J1815; J2405; U0002

== ENCOUNTER 2020-03-20 12:38 | Emergency (ER) | payer MEDICARE ==
[~2020-03-20] VITALS: Ht 172.7 cm; Wt 113.4 kg
[2020-03-20 12:54] VITALS: BP 176/90
--- NOTE | 2020-03-20 13:13 | Emergency Room Report ---
History of Present Illness General Chief Complaint: Upper Respiratory Illness Source: Patient Present Illness HPI 34-year-old male with history of type 2 diabetes and hypertension currently taking medication here complaining of 2 days of sore throat, congestion. Denies any cough, fever and chills, loss of taste and smell. Reports he also started having some diarrhea earlier today. Has not had a Covid test done in the past few days. Sitting comfortably with stable vital signs. Allergies: Coded Allergies: ASPIRIN (Verified Adverse Reaction, Intermediate, Swelling of eyes/detatched retina, 01/02/20) Pt self reported COVID-19 Screening Contact w/high risk pt: No Experienced COVID-19 symptoms?: Yes COVID-19 Testing performed LINE PATROLMAN: No Patient History Past Medical History: see triage record Past Surgical History: none Pertinent Family History: none Reviewed Nursing Documentation: PMH: Agreed; PSxH: Agreed Nursing Documentation-PMH Past Medical History: No History, Except For Hx Cardiac Problems: Yes - CHF Hx Hypertension: Yes Hx Pacemaker: No Hx Asthma: No Hx COPD: No Hx Diabetes: Yes Hx Cancer: No Hx Gastrointestinal Problems: No Hx Dialysis: No Hx Neurological Problems: Yes Hx Cerebrovascular Accident: No Hx Seizures: No Review of Systems All Other Systems: negative except mentioned in HPI Physical Exam Vital Signs Date Time Temp Pulse Resp B/P (MAP) Pulse Ox O2 Delivery O2 Flow Rate FiO2 03/20/20 12:43 98.2 84 16 176/90 (118) 96 Room Air Sp02 EP Interpretation: reviewed, normal General Appearance: no apparent distress, alert, GCS 15, non-toxic Head: normocephalic, atraumatic Eyes: bilateral eye normal inspection, bilateral eye PERRL ENT: hearing grossly normal, no angioedema, normal voice Neck: full range of motion, supple/symm/no masses Respiratory: no respiratory distress, no retraction, no accessory muscle use, speaking full sentences Cardiovascular #1: regular rate, rhythm Gastrointestinal: non-distended Musculoskeletal: back normal Neurologic: alert, motor strength/tone normal, oriented x3, sensory intact, responsive, speech normal Psychiatric: judgement/insight normal, memory normal, mood/affect normal, no suicidal/homicidal ideation Skin: no rash Lymphatic: no adenopathy Medical Decision Making PA Attestation All my diagnosis and treatment plans were reviewed ad discussed with my supervising physician Dr. Hensley Diagnostic Impression: Primary Impression: Upper respiratory infection ER Course 34-year-old male with history of type 2 diabetes and hypertension currently taking medication here complaining of 2 days of sore throat, congestion. Denies any cough, fever and chills, loss of taste and smell. Reports he also started having some diarrhea earlier today. Has not had a Covid test done in the past few days. Sitting comfortably with stable vital signs. Ddx considered but are not limited to: strep pharyngitis, URI, tonsillitis, peritonsillar abscess, influneza Vital signs: are WNL, pt. is afebrile H&PE are most consistent with: Upper respiratory infection, suspected Covid At this time Covid testing and amiodarone Radha due to local resources and access to Covid swabs. ORDERS: Azithromycin, prednisone ED INTERVENTIONS: None required at this time. DISCHARGE: At this time pt. is stable for d/c to home. Will provide printed patient care instructions, and any necessary prescriptions. Care plan and follow up instructions have been discussed with the patient prior to discharge. Advised patient to get tested for Covid, self isolate, take medication as directed, if worsening symptoms return to the emergency room Last Vital Signs Date Time Temp Pulse Resp B/P (MAP) Pulse Ox O2 Delivery O2 Flow Rate FiO2 03/20/20 12:54 98.2 16 176/90 96 Room Air 03/20/20 12:54 84 Disposition: HOME, SELF-CARE Condition: Stable Scripts Prednisone* (PREDNISONE*) 20 Mg Tablet 40 MG ORAL DAILY for 5 Days, #10 TAB Prov: Randal Silva 03/20/20 Azithromycin* (ZITHROMAX*) 250 Mg Tablet 250 MG ORAL DAILY, #6 TAB 0 Refills Take two tables once daily for 1 day, then one tablet once daily for 4 days. Prov: Randal Silva 03/20/20 Patient Instructions: Upper Respiratory Infection, Adult Additional Instructions: Take medication as directed, follow primary care provider, worsening symptoms return to the emergency room Randal Silva Mar 20, 2020 13:13
[2020-03-20] MEDS ORDERED: ZITHROMAX250 MG ORAL (13:14)
[2020-03-20] MEDS ORDERED: PREDNISONE20 MG ORAL (13:14)
[2020-03-20 13:20] VITALS: BP 164/87
== END 2020-03-20 13:20 | disposition home or self-care (01) ==
LOC: EMR 13:20
DX: J06.9 Acute upper respiratory infection, unspecified (principal); I11.0 Hypertensive heart disease with heart failure; I50.9 Heart failure, unspecified; E11.9 Type 2 diabetes mellitus without complications; Z88.6 Allergy status to analgesic agent
CPT/HCPCS: 99282

== ENCOUNTER 2020-03-28 10:22 | Emergency (ER) | payer MEDICARE ==
[~2020-03-28] VITALS: Ht 172.7 cm; Wt 112.9 kg
[~2020-03-28 10:22] MED LIST changes: +PREDNISONE20 MG ORAL; +ZITHROMAX250 MG ORAL
[2020-03-28 10:31] VITALS: BP 178/92
--- NOTE | 2020-03-28 10:31 | NUR ---
ED Nurse Note: Pt walked in to ED from home c/o headache onset last night, unk cause. Denies fall/ head injury. Denies nausea/ vomiting. Pt took Ibuprofen this AM. BP 178/92, pt took all his BP meds earlier. AAOx4, verbally responsive. No SOB. ERMD at bedside.
[2020-03-28] MEDS ORDERED: RIBOFLAVIN100 MG PO (10:42)
--- NOTE | 2020-03-28 10:42 | Emergency Room Report ---
History of Present Illness General Chief Complaint: Headache Source: Patient Present Illness HPI 34-year-old male multiple comorbidities hypertension, lipidemia, CHF, presents with gradual onset of headache frontal aspect, achy pulsating, no aggravating relieving factors severity is mild, gradual similar to previous headaches in the past not sudden onset patient presents for evaluation and treatment Allergies: Coded Allergies: ASPIRIN (Verified Adverse Reaction, Intermediate, Swelling of eyes/detatched retina, 01/02/20) Pt self reported COVID-19 Screening Contact w/high risk pt: No Experienced COVID-19 symptoms?: No COVID-19 Testing performed PRINCIPAL CLERK: Yes - Jan 2020 COVID-19 Screening: Negative COVID-19 COVID-19 Testing Source: OM Patient History Past Medical History: see triage record Reviewed Nursing Documentation: PMH: Agreed; PSxH: Agreed Nursing Documentation-PMH Hx Cardiac Problems: Yes - CHF Hx Hypertension: Yes Hx Pacemaker: No Hx Asthma: No Hx COPD: No Hx Diabetes: Yes Hx Cancer: No Hx Gastrointestinal Problems: No Hx Dialysis: No Hx Neurological Problems: Yes Hx Cerebrovascular Accident: No Hx Seizures: No Review of Systems All Other Systems: negative except mentioned in HPI Physical Exam Vital Signs Date Time Temp Pulse Resp B/P (MAP) Pulse Ox O2 Delivery O2 Flow Rate FiO2 03/28/20 10:26 98.2 79 19 178/92 (120) 98 Room Air General Appearance: well appearing, no apparent distress Head: normocephalic, atraumatic ENT: hearing grossly normal, normal voice Neck: full range of motion, supple Respiratory: no respiratory distress, speaking full sentences Neurologic: alert, motor strength/tone normal, spinning lathe operator automatic III-XII nml as tested, sensory intact, cerebellar normal - Finger-nose testing intact, speech normal, normal gait, no pronator, other - No Romberg Psychiatric: mood/affect normal Skin: no rash Medical Decision Making Diagnostic Impression: Primary Impression: Headache Qualified Codes: R51.9 - Headache, unspecified ER Course Based on the patient's history and physical there is very low clinical suspicion for significant intracranial pathology. There are no red flags of FRANCO, not sudden in onset, not maximal in onset, no acute neurological findings, no fever with head stiffness. History of headaches yes Low suspicion for subarachnoid hemorrhage, encephalitis, meningitis. Last Vital Signs Date Time Temp Pulse Resp B/P (MAP) Pulse Ox O2 Delivery O2 Flow Rate FiO2 03/28/20 10:31 98.2 79 19 178/92 98 Room Air Disposition: HOME, SELF-CARE Condition: Stable Scripts Riboflavin (RIBOFLAVIN) 100 Mg Tablet 400 MG PO DAILY, #180 TAB Prov: Dimas Lorenzo MD 03/28/20 Referrals: Barrett Kim MD (PCP) Departure Forms: Return to Work Return to Work Date: Mar 30, 2020 Patient Instructions: General Headache Without Cause Additional Instructions: The patient was provided with discharge instructions, notified to follow-up with a primary care doctor and or specialist in the next 24-48 hours, and to return to the ED if they have worsening of their symptoms. Please note that this report is being documented using [employer] technology. This can lead to erroneous entry secondary to incorrect interpretation by the dictating instrument. Dimas Lorenzo MD Mar 28, 2020 10:42
[2020-03-28] MEDS ORDERED: Acetaminophen 500mg (ES) tab ORAL ONE (10:45)
[2020-03-28] MEDS ORDERED: Ketorolac 30mg Inj IM ONE (10:45)
[2020-03-28] MEDS ORDERED: Metoclopramide 10mg/2ml Inj IM ONE (10:45)
[2020-03-28] MEDS ORDERED: dexAMETHasone 10mg/ml Inj IV ONE ×2 (10:47→11:00)
[2020-03-28 11:37] VITALS: BP 145/82
--- NOTE | 2020-03-28 11:37 | NUR ---
ED Nurse Note: Pt cleared by ERMD for discharge. DC instructions/prescription was given and explained to pt and verbalized understanding of teachings. All medical deviecs such as ID band removed. Pt is AAO x4, ambulatory and left with all personal belongings.
== END 2020-03-28 11:37 | disposition home or self-care (01) ==
LOC: EMR 10:39
DX: R51.9 Headache, unspecified (principal); I11.0 Hypertensive heart disease with heart failure; I50.9 Heart failure, unspecified; E11.9 Type 2 diabetes mellitus without complications; Z88.6 Allergy status to analgesic agent
CPT/HCPCS: 96372; 96374; 99284; J1885; J2765

== ENCOUNTER 2020-05-25 07:58 | Emergency (ER) | payer MEDICARE ==
[~2020-05-25] VITALS: Ht 175.3 cm; Wt 113.4 kg
[~2020-05-25 07:58] MED LIST changes: +RIBOFLAVIN100 MG PO
--- NOTE | 2020-05-25 08:35 | NUR ---
Patient presented to the ER with c/o headache which started last night but became progressively worse this morning. He reports 7/10 pain. Denies difficulty seeing, weakness of extremities, numbness, N/V. Left eye noted to be red compared to right. No adverse medical history. He does note however that he smokes marijauna daily but has never experienced headaches to this extent. AAOX4. Independently ambulatory.
[2020-05-25 09:54] LABS: BASOPHILS % (AUTO) 2.2 % (0.0-2.0); EOSINOPHILS % (AUTO) 0.7 % (0.0-3.0); HEMATOCRIT 42.6 % (42.0-52.0); HEMOGLOBIN 14.5 G/DL (14.2-18.0); LYMPHOCYTES % (AUTO) 16.6 % (20.0-45.0); MEAN CORPUSCULAR VOLUME 84 FL (80-99); MONOCYTES % (AUTO) 9.5 % (1.0-10.0); PLATELET COUNT 287 K/UL (150-450); RED BLOOD COUNT 5.05 M/UL (4.70-6.10); WHITE BLOOD COUNT 7.7 K/UL (4.8-10.8)
--- NOTE | 2020-05-25 10:02 | NUR ---
ED Nurse Note: pt states espinoza, iv started, labs sent. requesting pain medication from md. pt denies taking pain medication prior to coming to er.
[2020-05-25 10:05] LABS: ANION GAP 8 mmol/L (5-15); BLOOD UREA NITROGEN 17 mg/dL (7-18); CALCIUM 9.4 MG/DL (8.5-10.1); CARBON DIOXIDE 26 MMOL/L (21-32); CHLORIDE 99 MMOL/L (98-107); CREATININE 1.5 MG/DL (0.55-1.30); POTASSIUM 4.3 MMOL/L (3.5-5.1); SODIUM 133 MMOL/L (136-145)
[2020-05-25 10:10] LABS: ALANINE AMINOTRANSFERASE 31 U/L (12-78); ALBUMIN 3.8 G/DL (3.4-5.0); ALKALINE PHOSPHATASE 62 U/L (46-116); ASPARTATE AMINO TRANSFERASE 15 U/L (15-37); BILIRUBIN,TOTAL 0.8 MG/DL (0.2-1.0)
[2020-05-25] MEDS ORDERED: Acetaminophen 500mg (ES) tab ORAL ONE (10:15)
[2020-05-25] MEDS ORDERED: metFORMIN 500mg tab ORAL ONE (10:45)
--- NOTE | 2020-05-25 11:01 | Diagnostic Imaging Report ---
Indication: Headache Technique: Continuous helical CT scanning of the head was performed utilizing automated exposure control without intravenous contrast material. Axial and coronal reconstructions were obtained. Comparison: None CT dose: Total DLP 1072.2 mGycm; CTDI vol 53.4 mGy Findings: There is no acute intracranial hemorrhage, mass effect or cortical edema. There is no shift of the midline structures. The ventricles, cisterns and sulci are within normal limits for age. Visualized mastoid air cells and paranasal sinuses are unremarkable. No focal lesions of the bony calvarium or soft tissues of the scalp are seen. Impression: No evidence of acute intracranial hemorrhage, mass effect or cortical edema. MRI may be obtained for more sensitive evaluation as clinically indicated. The CT scanner at [facility] is accredited by the [employer] and the scans are performed using protocols designed to limit radiation exposure to as low as reasonably achievable to attain images of sufficient resolution adequate for diagnostic evaluation. Normal
--- NOTE | 2020-05-25 11:47 | Emergency Room Report ---
History of Present Illness General Chief Complaint: Headache Source: Patient Present Illness HPI This patient complains of a headache that started yesterday evening. He states he was able to sleep last night but then woke up with the same headache. He did have a similar headache a couple months ago. He has never been diagnosed with migraines specifically. Headache was not sudden in onset. He denies recent illness. He denies nausea or vomiting. He denies fever or chills. He denies cough or congestion. He denies chest pain or shortness of breath. He denies weakness. He denies tingling or numbness. He denies neck pain. He denies blurry vision. He has no other complaints. 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 COVID-19 Screening: Negative COVID-19 COVID-19 Testing Source: nasal Patient History Past Medical History: see triage record, DM, HTN, AL, CAD, CHF, other - HLP Social History: Reports: smoking; Denies: alcohol use, drug use Reviewed Nursing Documentation: PMH: Agreed; PSxH: Agreed Nursing Documentation-PMH Past Medical History: No History, Except For Hx Cardiac Problems: Yes - CHF Hx Hypertension: Yes Hx Pacemaker: No Hx Asthma: No Hx COPD: No Hx Diabetes: Yes Hx Cancer: No Hx Gastrointestinal Problems: No Hx Dialysis: No Hx Neurological Problems: Yes Hx Cerebrovascular Accident: No Hx Seizures: No Review of Systems All Other Systems: negative except mentioned in HPI Physical Exam Vital Signs Date Time Temp Pulse Resp B/P (MAP) Pulse Ox O2 Delivery O2 Flow Rate FiO2 05/25/20 08:05 98.6 89 18 187/97 (127) 99 Room Air Sp02 EP Interpretation: reviewed, normal General Appearance: no apparent distress, alert, GCS 15, non-toxic Head: normocephalic, atraumatic Eyes: bilateral eye normal inspection, bilateral eye PERRL ENT: hearing grossly normal, normal pharynx, no angioedema, normal voice Neck: normal inspection, full range of motion, supple, supple/symm/no masses Respiratory: chest non-tender, lungs clear, normal breath sounds, no respiratory distress, no retraction, no accessory muscle use, speaking full sentences Cardiovascular #1: regular rate, rhythm, no edema Gastrointestinal: non tender, soft, non-distended, no guarding, no rebound Rectal: deferred Musculoskeletal: back normal, normal range of motion, gait/station normal, non- tender Neurologic: alert, motor strength/tone normal, oriented x3, sensory intact, re sponsive, speech normal Psychiatric: judgement/insight normal, memory normal, mood/affect normal, no suicidal/homicidal ideation Skin: no rash, normal color Medical Decision Making Diagnostic Impression: Primary Impression: Headache Additional Impression: Poorly controlled diabetes mellitus ER Course This patient's chief complaint was a headache. Given that the patient has a new development of headaches over the past couple months, I did obtain a CT of the head to assess for an intracranial process as a precaution, however, this was negative for acute findings. I did not feel the need to increase the sensi tivity of the imaging with an MRI or do an LP as I had a low suspicion for subarachnoid or meningitis based on the history and physical exam. Patient underwent basic lab evaluation and was found to have hyperglycemia with a blood sugar over 300. Further discussion with the patient and the patient admitted that he is not compliant with the Metformin at the dosages it has been pres cribed. He is supposed to be on 1000 mg 3 times a day but takes only 1 or 2 tablets a day depending. He does not check his blood sugars or monitor his blood sugar. He does not have a good reason other than he just does not do it. Did educate the patient extensively on the dangers of uncontrolled diabetes and the long-term sequelae to include renal failure, CVA, vision changes. He admitted that he was already told he is diabetic retinopathy and that his father was on dialysis. He is found to have a creatinine of 1.5 which is slightly elevated from his previous baseline of 1.3. He was given IV fluids and acetaminophen and 1000 mg dose of metformin. He was educated extensively on the importance of follow-up with his primary care physician and compliance with his diabetes regimen and monitoring his blood sugar. The patient's blood pressure was also initially elevated but declined to the 160s systolic. He does take antihypertensive medications but did not take them today. I did not identify an emergency medical condition in this patient does not require admission at this time, however, the patient will require close follow on with his primary care physician to monitor his diabetes control, renal function and blood pressure control. The patient indicated understanding intention to do so. This patient was evaluated in the context of the global COVID-19 pandemic, which necessitated consideration that the patient might be at risk for infection with the [id number] virus that causes COVID-19. Institutional protocols and algorithms that pertain to the evaluation of patients at risk for COVID-19 and the state of rapid change based on information released by multiple regulatory bodies including the CDC and federal and state organizations. These policies and algorithms were followed during the patient's care in the ED. Laboratory Tests Test 05/25/20 09:42 White Blood Count 7.7 K/UL (4.8-10.8) Red Blood Count 5.05 M/UL (4.70-6.10) Hemoglobin 14.5 G/DL (14.2-18.0) Hematocrit 42.6 % (42.0-52.0) Mean Corpuscular Volume 84 FL (80-99) Mean Corpuscular Hemoglobin 28.7 PG (27.0-31.0) Mean Corpuscular Hemoglobin Concent 34.0 G/DL (32.0-36.0) Red Cell Distribution Width 12.0 % (11.6-14.8) Platelet Count 287 K/UL (150-450) Mean Platelet Volume 7.2 FL (6.5-10.1) Neutrophils (%) (Auto) 71.0 % (45.0-75.0) Lymphocytes (%) (Auto) 16.6 % (20.0-45.0) L Monocytes (%) (Auto) 9.5 % (1.0-10.0) Eosinophils (%) (Auto) 0.7 % (0.0-3.0) Basophils (%) (Auto) 2.2 % (0.0-2.0) H Sodium Level 133 MMOL/L (136-145) L Potassium Level 4.3 MMOL/L (3.5-5.1) Chloride Level 99 MMOL/L (98-107) Carbon Dioxide Level 26 MMOL/L (21-32) Anion Gap 8 mmol/L (5-15) Blood Urea Nitrogen 17 mg/dL (7-18) Creatinine 1.5 MG/DL (0.55-1.30) H Estimated Glomerular Filtration Rate > 60 mL/min (>60) Glucose Level 331 MG/DL (74-106) H Calcium Level 9.4 MG/DL (8.5-10.1) Total Bilirubin 0.8 MG/DL (0.2-1.0) Aspartate Amino Transferase (AST) 15 U/L (15-37) Alanine Aminotransferase (ALT) 31 U/L (12-78) Alkaline Phosphatase 62 U/L (46-116) Total Protein 7.5 G/DL (6.4-8.2) Albumin 3.8 G/DL (3.4-5.0) Globulin 3.7 g/dL Albumin/Globulin Ratio 1.0 (1.0-2.7) CT/MRI/US Diagnostic Results CT/MRI/US Diagnostic Results : Imaging Test Ordered: CT head Impression No acute findings. Specifically no intracranial bleed, mass effect or edema. See official report. Last Vital Signs Date Time Temp Pulse Resp B/P (MAP) Pulse Ox O2 Delivery O2 Flow Rate FiO2 05/25/20 08:50 Room Air 05/25/20 08:05 98.6 89 18 187/97 (127) 99 Status: improved Disposition: HOME, SELF-CARE Condition: Improved Referrals: NOT CHOSEN IPA/,REFERRING (PCP) Latosha Cali DO May 25, 2020 11:47
[2020-05-25 12:00] VITALS: BP 150/89
[2020-05-25 14:07] VITALS: BP 149/78
--- NOTE | 2020-05-25 14:08 | NUR ---
ER DISCHARGE NOTE: Patient is cleared to be discharged per ERMD, pt is aox4, on room air, with stable vital signs. pt was given dc and prescription instructions, pt was able to verbalize understanding, pt id band and iv site removed without complications. pt is able to ambulate with steady gait. pt took all belongings.
== END 2020-05-25 14:09 | disposition home or self-care (01) ==
LOC: EMR 08:45
DX: R51.9 Headache, unspecified (principal); E11.65 Type 2 diabetes mellitus with hyperglycemia; Z88.6 Allergy status to analgesic agent; I10 Essential (primary) hypertension; I11.0 Hypertensive heart disease with heart failure; I50.9 Heart failure, unspecified; I25.2 Old myocardial infarction; E78.5 Hyperlipidemia, unspecified; F17.200 Nicotine dependence, unspecified, uncomplicated
CPT/HCPCS: 36415; 70450; 80053; 82962; 85025; 96360; 96361; 99284; J7030